=== PATIENT | female | born 1955 | race Caucasian/White ===

== ENCOUNTER 2018-08-12 23:16 | Inpatient (IN) ==
[2018-08-13 00:47] LABS: URINE SOURCE CLEAN CATCH
[2018-08-13 01:09] LABS: BASO# 0.04 X1000 (0.0-0.2); BASO% 0.5 % (0.0-0.8); EOS# 0.18 X1000 (0.0-0.7); EOS% 2.3 % (0.0-10.0); HEMATOCRIT 40.7 % (37.0-47.0); HEMOGLOBIN 13.4 g/dL (12.0-16.0); IMM GRAN# 0.03 X1000 (0.0-0.04); IMM GRAN% 0.4 % (0.0-0.5); LYMPH# 1.35 X1000 (1.2-3.4); LYMPH% 17.4 % (20.5-51.1); MCH 29.1 PG (27-31); MCHC 32.9 g/dL (33-37); MCV 88.5 FL (81-99); MONO% 10.3 % (1.7-9.3); MPV 10.7 FL (7.4-10.4); NEUT# 5.36 X1000 (1.4-6.5); NEUT% 69.1 % (42.2-75.2); PLT 284 X1000 (130-400); WBC 7.76 X1000 (4.8-10.8)
[2018-08-13 01:28] LABS: BILIRUBIN URINE NEGATIVE (NEGATIVE); BLOOD URINE TRACE (NEGATIVE); CLARITY SL. CLOUDY (CLEAR); COLOR YELLOW; KETONE URINE TRACE mg/dL (NEGATIVE); LEUKOCYTES URINE 1+ (NEGATIVE); NITRITE URINE POSITIVE (NEGATIVE); PH URINE 6.5; PROTEIN URINE 1+(30 mg/dL) mg/dL (NEGATIVE); SP GRAVITY URINE 1.015; UROBILINOGEN URINE NORMAL
[2018-08-13 01:29] LABS: URINE BACTERIA 4+ /HFP; URINE EPITHELIAL CELLS <10 /HPF (<10); URINE RBC <10 /HPF (<10)
[2018-08-13 01:30] LABS: URINE WBC <10 /HPF (<10)
--- NOTE | 2018-08-13 02:04 | PROVIDER DOCUMENTATION ---
Addendum entered and electronically signed by Mendel Ferrera MD 08/13/18 04:35 : Additional Progress - ADDITIONAL CONSULTS #4 Consult: Dr. Briseno Time Discussed: 04:35 Consult Disposition: Admit Addendum entered and electronically signed by Mendel Ferrera MD 08/13/18 04:35 : EKG Interpretation - EKG Time of EKG reading by physician:: 00:25 EKG Read and Signed by:: Mendel Ferrera Rate: 68 Rhythm: NSR [place]: normal QRS: LVH Comments: no STEMI Original Note: This chart was entered by Kiarra Camarena Scribe, acting as scribe for Mitchel Donaldson MD. HPI-General Adult <Mendel Ferrera - Last Filed: 08/13/18 04:35> - General Source: patient, family - History of Present Illness -Gen Adult Nature of Presenting Problems: 62 yof presents with to ed cc less than an hour ago right hand cramped and began having a spasm. pt says she couldn't feel her hands, lost balance and fell out in the floor. reports pt had 3xbypass november 14, 2017 and had some minor issues with falling out after surgery but has been ok lately. hx of DM, neuropathy bilateral hands and feet, and fibromyalgia Location of Pain/Injury: reports: hand(s) (right) Severity: reports: mild Onset/Duration: reports: other (less than an hour ago) <Mitchel Donaldson - Last Filed: 08/14/18 01:31> - General Chief Complaint: General Adult Stated Complaint: R arm numbness Time Seen by Provider: 08/12/18 23:52 Allergies/Adverse Reactions: Patient Allergies Allergy/AdvReac Type Severity Reaction Status Date / Time metformin AdvReac DIARRHEA Verified 12/06/17 09:08 Home Medications: Home Medication List Medication Instructions Recorded Confirmed Last Taken Type Metoprolol [Lopressor] 50 mg PO TID 02/22/14 08/13/18 08/12/18 History 50mg Pregabalin [Lyrica] 200 mg PO QHS 02/22/14 08/13/18 08/11/18 History 200mg Hydrocodone/APAP 10 mg/325 mg 1 each PO Q4H PRN PRN #30 tablet 03/31/16 Unknown Rx [[place]-10] Aspirin 325 mg PO DAILY 12/04/17 08/13/18 08/12/18 History 325mg Clonazepam [Klonopin] 1 mg PO TID 12/04/17 08/13/18 08/12/18 History 1mg Duloxetine [Cymbalta] 60 mg PO BID 12/04/17 08/13/18 08/12/18 History 60mg Glipizide [Glucotrol] 5 mg PO BID CC #60 tab 12/10/17 08/13/18 08/12/18 Rx 5mg Cyclobenzaprine [Flexeril] 10 mg PO QHS 08/13/18 08/13/18 08/12/18 History 10mg Fluoxetine [Prozac] 40 mg PO DAILY 08/13/18 08/13/18 08/12/18 History Hum Insulin NPH/Reg Insulin Hm 20 unit SQ BID 08/13/18 08/13/18 08/12/18 History [Novolin 70-30 100 Unit/ml Vial] Trazodone [Desyrel] 50 - 100 mg PO HS PRN PRN 08/13/18 08/13/18 08/11/18 History Triamterene/Hydrochlorothiazid 1 each PO DAILY 08/13/18 08/13/18 08/12/18 History [Triamterene-Hctz 37.5-25 mg Tb] 37.5/25 Review of Systems - Adult - REVIEW OF SYSTEMS - ADULT Constitutional: reports: see HPI. denies: chills, fever, fatique Eyes: reports: no symptoms reported Ears, Nose, Mouth & Throat: reports: no symptoms reported Cardiovascular: reports: no symptoms reported Respiratory: reports: no symptoms reported Gastrointestinal: reports: no symptoms reported Genitourinary: reports: no symptoms reported Musculoskeletal: reports: see HPI (neuropathy hands and feet) Integumentary: reports: no symptoms reported Neurological: reports: no symptoms reported Psychiatric: reports: no symptoms reported Endocrine: reports: no symptoms reported Hematologic/Lymphatic: reports: no symptoms reported Allergic/Immunologic: reports: no symptoms reported All Other Systems: Reviewed and Negative <Mitchel Donaldson - Last Filed: 08/14/18 01:31> Past History - Adult - PAST MEDICAL HISTORY-ADULT Review of Records: reports: Old Records Reviewed, Nursing Assessment Review, Medications Reviewed, Social history reviewed & non-contributory. Major Childhood Illnesses: reports: history unknown Cardiovascular: reports: HTN, other (tachycardia) Respiratory: reports: denies history Gastrointestinal: reports: denies history Obstetrical/Gynecological: reports: denies history, other (menopausal for 10 years, still has uterus and ovaries) Genitourinary: reports: denies history Musculoskeletal: reports: denies history, other (neuropathy) Neurological: reports: denies history Psychiatric: reports: denies history, depression Endocrine/Immune: reports: Diabetes Other Conditions: reports: denies history - PRIOR SURGERIES/PROCEDURES Surgical/Procedure History: reports: recent surgery (11/14/17), CABG (recent ), tonsillectomy, other (varicose veins) - PRIOR HOSPITALIZATIONS Prior Hospitalizations: reports: none - IMMUNIZATION STATUS Childhood Immunizations: See Nurse Assessment Flu Vaccine: See Nurse Assessment - FAMILY HISTORY Family History: reviewed, not pertinent - SOCIAL HISTORY Smoking: non-smoker <Mitchel Donaldson X. - Last Filed: 08/14/18 01:31> Physical Exam-General - PHYSICAL EXAM-ADULT Initial Vital Signs Reviewed: Yes - CONSTITUTIONAL General Appearance: appears well, alert, no apparent distress - EYES Eyes: PERRL/EOMI - HEAD, EARS, NOSE, MOUTH & THROAT HENMT: normocephalic/atraumatic, moist mucous membranes - NECK Neck: non-tender, full range of motion, supple, normal inspection - RESPIRATORY Respiratory: chest non-tender, lungs clear, normal breath sounds - CARDIOVASCULAR Cardiovascular: normal peripheral pulses, regular rate, rhythm, no edema - GASTROINTESTINAL (ABDOMEN) Abdominal Exam: normal bowel sounds, non tender, soft - LYMPHATIC Lymphatic: no adenopathy - MUSCULOSKELETAL Back Exam: normal inspection, no CVA tenderness, no vertebral tenderness Extremity: normal range of motion, non-tender, normal gait - SKIN Integumentary: normal color, normal turgor, warm/dry - NEUROLOGIC 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 - Last Filed: 08/14/18 01:31> Progress - PLAN OF CARE/RESULTS Progress/Plan/Lab Results: Vital Signs - 8 hr 08/12/18 23:16 Temperature 98 F Pulse Rate 71 Respiratory Rate 20 Blood Pressure 111/77 O2 Sat by Pulse Oximetry 99 Laboratory Results - last 24 hr 08/13/18 08/13/18 00:35 00:40 WBC 7.76 RBC 4.60 Hgb 13.4 Hct 40.7 MCV 88.5 MCH 29.1 MCHC 32.9 L RDW Std Deviation 13.0 Plt Count 284 MPV 10.7 H Immature Gran % (Auto) 0.4 Neut % (Auto) 69.1 Lymph % (Auto) 17.4 L Mcculloch % (Auto) 10.3 H Eos % (Auto) 2.3 Baso % (Auto) 0.5 Immature Gran # (Auto) 0.03 Neut # (Auto) 5.36 Lymph # (Auto) 1.35 [place] # (Auto) 0.80 H Eos # (Auto) 0.18 Baso # (Auto) 0.04 Urine Source CLEAN CATCH Urine Color YELLOW Urine Clarity SL. CLOUDY A Urine pH 6.5 Ur Specific [place] 1.015 Urine Protein 1+(30 mg/dL) A Urine Ketones TRACE Urine Blood TRACE Urine Nitrite POSITIVE A Urine Bilirubin NEGATIVE Urine Urobilinogen NORMAL Urine Microscopic RBC <10 Urine WBC 1+ A Urine Microscopic WBC <10 Ur Epithelial Cells <10 Urine Bacteria 4+ Urine Glucose 3+(500 mg/dL) A Orders Category Date Time Status CHEST-1 VIEW [RAD] Stat Exams 08/13/18 00:10 Taken CBC WITH ELECTRONIC DIFF [HEME] Stat Lab 08/13/18 00:40 Completed CK PROFILE [SP CHEM] Stat Lab 08/13/18 00:40 Received COMPREHENSIVE METABOLIC PANEL [CHEM] Stat Lab 08/13/18 00:40 Received MAGNESIUM [CHEM] Stat Lab 08/13/18 00:40 Received PRO B-NATRIURETIC PEPTIDE Stat Lab 08/13/18 00:[address] [URINALYSIS] Stat Lab 08/13/18 00:35 Completed URINE MICROSCOPIC [URINALYSIS] Stat Lab 08/13/18 00:35 Completed CefTRIAXONE [Rocephin] Med 08/13/18 02:36 Once 1 gm IM NOW ONE Lidocaine 1% Pf [Xylocaine-Mpf 1%] Med 08/13/18 02:36 Once 5 ml INJ NOW ONE EKG [EKG] Stat Ther 08/13/18 00:07 Ordered Heart score=5 (moderate risk) Result Diagrams: 08/13/18 00:40 08/13/18 00:40 - CONSULTS/PCP/HOSPITALIST Notification #1 *Consult/PCP/Hospitalist*: Dr. Emmanuel, mems device scientist Time Discussed: 04:05 Reason/Comments: recommend admit for observation <Mendel Ferrera - Last Filed: 08/13/18 04:35> - PLAN OF CARE/RESULTS Progress/Plan/Lab Results: Vital Signs - 8 hr 08/12/18 23:16 Temperature 98 F Pulse Rate 71 Respiratory Rate 20 Blood Pressure 111/77 O2 Sat by Pulse Oximetry 99 Orders Category Date Time Status CHEST-1 VIEW [RAD] Stat Exams 08/13/18 00:10 Ordered CBC WITH ELECTRONIC DIFF [HEME] Stat Lab 08/13/18 00:09 Uncollected CK PROFILE [SP CHEM] Stat Lab 08/13/18 00:09 Uncollected COMPREHENSIVE METABOLIC PANEL [CHEM] Stat Lab 08/13/18 00:09 Uncollected MAGNESIUM [CHEM] Stat Lab 08/13/18 00:09 Uncollected PRO B-NATRIURETIC PEPTIDE Stat Lab 08/13/18 00:[address] [URINALYSIS] Stat Lab 08/13/18 00:10 Uncollected EKG [EKG] Stat Ther 08/13/18 00:07 Ordered Result Diagrams: 08/13/18 00:40 08/13/18 00:40 - REASSESSMENT Reassessment #1 Time Reassessed: 01:48 Status: improving (no numbness; no lateralizing motor deficit;) - XRAY 1 XRAY Study: Chest Impression: Normal (no acute pathological findings (pending official radiologist report)) - CHANGE OF SHIFT REPORT (ED Provider) Report Given and Care Transferred to:: Dr. Ferrera Time of Transfer: 02:04 Items Pending: Labs <Mitchel Donaldson - Last Filed: 08/14/18 01:31> Departure - Departure Date of Disposition Decision: 08/13/18 Time of Disposition Decision: 03:07 Certified Medical Emergency: Emergent - Critical Care Note This patient required my direct & personal management of CC.: No <Mendel Ferrera - Last Filed: 08/13/18 04:35> - Departure Certified Medical Emergency: Emergent - Critical Care Note This patient required my direct & personal management of CC.: No <Mitchel Donaldson - Last Filed: 08/14/18 01:31> - Departure DIAGNOSIS: Anxiety in acute stress reaction, Elevated brain natriuretic peptide (BNP) level, Elevated troponin UTI (urinary tract infection) Qualifiers: Urinary tract infection type: site unspecified Hematuria presence: without hematuria Qualified Code(s): N39.0 - Urinary tract infection, site not specified Disposition: ADMITTED INPATIENT 09 Condition: Stable Attestation - Physician/ JAZMÍN Attestation Patient care was provided by Advanced Practice Provider:: No The physician spent face to face time with patient:: Yes Advanced Practice Provider documentation review:: Supervising physician onsite and consulted in the evaluation and care of this patient. The physician did have a face to face encounter with the patient. <Mitchel Donaldson. - Last Filed: 08/14/18 01:31> This chart was documented by the indicated scribe, (Kiarra Camarena Scribe) and accurately reflects the services I performed and decisions made by Anika apodaca Kofi X., MD, as attested by the provider's signature.
[2018-08-13] MEDS ORDERED: ROCEPHIN IM ONE (02:36)
[2018-08-13] MEDS ORDERED: XYLOCAINE-MPF 1% INJ ONE (02:36)
[2018-08-13 02:58] LABS: ALBUMIN 3.9 g/dL (3.5-5.0); CALCIUM 9.8 mg/dL (8.8-10.2); CREATININE 1.1 mg/dL (0.5-0.9); POTASSIUM 4.9 mmol/L (3.5-5.1); TOTAL BILIRUBIN 0.2 mg/dL (0.20-1.00); TOTAL PROTEIN 7.2 g/dL (6.3-8.3)
[2018-08-13] MEDS ORDERED: LOVENOX SUBQ ONE (04:03)
[2018-08-13] MEDS ORDERED: LOVENOX ONE (04:14)
--- NOTE | 2018-08-13 06:58 | EKG Report ---
Test Performed on : 08/13/2018 00:24:40 AM Test Reason : near syncope Blood Pressure : / mmHG Vent. Rate : 068 BPM Atrial Rate : 068 BPM P-R Int : 184 ms QRS Dur : 104 ms QT Int : 380 ms P-R-T Axes : 029 009 043 degrees QTc Int : 404 ms Normal sinus rhythm. Possible Left atrial enlargement Left ventricular hypertrophy Abnormal ECG When compared with ECG of 04-DEC-2017 18:49, (Unconfirmed) T wave inversion no longer evident in Inferior leads T wave inversion no longer evident in Lateral leads Unconfirmed Result
--- NOTE | 2018-08-13 06:59 | Diag Imaging Result Doc PS360 ---
EXAM: CHEST-1 VIEW 08/13/2018 HISTORY: near syncope TECHNIQUE: AP portable at 0042 COMMENT: There is minimal atelectasis in the left costophrenic angle. The heart size and pulmonary vascularity are within normal limits. Otherwise the lungs are clear. IMPRESSION: Minimal left lower lobe atelectasis. Electronically signed by Sebas Rick 08/13/2018 6:56 AM
[2018-08-13] MEDS ORDERED: ASPIRIN EC PO ONE (11:37)
[2018-08-13] MEDS ORDERED: DESYREL PO PRN (12:46)
[2018-08-13] MEDS ORDERED: NORCO-10 PO PRN (12:46)
--- NOTE | 2018-08-13 13:16 | EKG Report ---
Test Performed on : 08/13/2018 11:20:51 AM Test Reason : Elevated troponins Blood Pressure : / mmHG Vent. Rate : 077 BPM Atrial Rate : 077 BPM P-R Int : 196 ms QRS Dur : 104 ms QT Int : 374 ms P-R-T Axes : 033 027 084 degrees QTc Int : 423 ms Normal sinus rhythm. Possible Left atrial enlargement Nonspecific T wave abnormality Abnormal ECG When compared with ECG of 13-AUG-2018 00:24, (Unconfirmed) No significant change was found Confirmed by Hussain Richardson MD ([id number]) on 08/14/2018 9:45:33 AM
[2018-08-13] MEDS: ASPIRIN EC PO SCH (13:37)
[2018-08-13] MEDS: LOPRESSOR PO SCH ×2 (13:37→16:58)
[2018-08-13] MEDS: KLONOPIN PO SCH ×2 (13:38→16:58)
[2018-08-13] MEDS: LOVENOX SUBQ SCH (16:57)
[2018-08-13] MEDS: HUMULIN R (PARKWAY) SUBQ SCH ×2 (16:57→20:52)
[2018-08-13] MEDS: GLUCOTROL PO SCH (16:58)
--- NOTE | 2018-08-13 17:59 | Diag Imaging Result Doc PS360 ---
EXAM: CT HEAD W/O CONTRAST 08/13/2018 HISTORY: encephalopathy TECHNIQUE: This exam was performed using automated exposure control, adjustment of mA or kV according to patient size, and/or use of iterative reconstruction technique. COMMENT: There are calcifications present in the left vertebral and both internal carotid arteries. There is no evidence of mass effect, bleed, or abnormal extra-axial fluid collection. Compared to the previous examination of 12/04/2017 there has been no appreciable change. The visualized paranasal sinuses are clear. The calvarium is intact. IMPRESSION: No evidence of acute intracranial disease. Electronically signed by Sebas Rick 08/13/2018 5:57 PM
--- NOTE | 2018-08-13 18:22 | Diag Imaging Result Doc PS360 ---
EXAM: CT THORAX W/CONTRAST 08/13/2018 HISTORY: syncope, elevated troponin TECHNIQUE: This exam was performed using automated exposure control, adjustment of mA or kV according to patient size, and/or use of iterative reconstruction technique. COMMENT: There has been previous sternotomy. There is minimal atelectasis or fibrosis in the lung bases. There are no previous thoracic studies available for comparison however the atelectatic changes in the bases are actually somewhat improved since the previous abdominal study of 03/26/2016. There are no abnormal fluid collections. There are extensive coronary calcifications. There is apparent muscular hypertrophy of the left ventricle. There is no evidence of significant adenopathy. The aorta is normal in caliber without evidence of dissection. No acute bony abnormalities are present. IMPRESSION: Minimal atelectasis. Other chronic changes as described. Electronically signed by Sebas Rick 08/13/2018 6:18 PM
--- NOTE | 2018-08-13 19:11 | CONSULTATION ---
DATE OF CONSULTATION: 08/13/2018 IMPRESSION: 1. Transient weakness, right upper extremity. Consider possible transient ischemic attack. 2. Very mild elevation in troponin. Etiology not clear as patient has not had any chest discomfort. 3. Atherosclerotic coronary disease with previous coronary bypass grafting October 2017. 4. Diabetes mellitus, longstanding. 5. Mild hypertension. 6. Diabetic neuropathy. PAST SURGICAL HISTORY: Also includes tonsillectomy. RECOMMENDATIONS: 1. Obtain noncontrasted head CT. If negative, initiate Lovenox. 2. Echocardiography with bubble study. 3. Ultimately would pursue MRI of the brain and transesophageal echocardiography to evaluate for possible cardiac source of embolus. HISTORY: This 62-year-old white female with past history of previous coronary bypass surgery October 2017, mild hypertension, longstanding diabetes mellitus and diabetic neuropathy was admitted to emergency room early this morning with slightly elevated troponin. She relates that yesterday evening she developed a uncontrollable shaking in her right hand. She tried to control this with the left hand. As the shaking improved she started to notice that her right upper extremity was weak. She tried to walk but had difficulty standing presumably due to weakness. She relates that she tended to fall forward. Symptoms lasted approximately 10 to 15 minutes and then resolved. She became apprehensive regarding her symptoms possibly representing a stroke or something. She came to the emergency room. Evaluation was benign with exception that her troponin was very mildly elevated at 0.5. She had no chest pain whatsoever. She does describe some fairly typical angina symptoms prior to her coronary bypass surgery last October. She has not had recurrence of angina symptoms since then. PAST MEDICAL HISTORY: 1. Atherosclerotic coronary disease with coronary bypass surgery. October 2017. 2. Borderline hypertension. 3. Longstanding diabetes mellitus with associated peripheral neuropathy. 4. 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 PAST SURGICAL HISTORY: Also includes tonsillectomy and adenoidectomy. ALLERGIES: She is allergic or intolerant to metformin. MEDICATIONS PRIOR TO ADMISSION: As listed. It is noteworthy that she has been on aspirin prior to admission. SOCIAL HISTORY: She is . She does not smoke or use alcohol. FAMILY HISTORY: Positive for coronary disease. REVIEW OF SYSTEMS: Pulmonary: Negative. Gastrointestinal: Negative. Constitutional: Negative. Remainder review of systems negative/noncontributory with 14 total systems reviewed. PHYSICAL EXAMINATION: General: This is a pleasant, overweight, older middle-aged white female in no distress. Vital signs: Blood pressure 167/91, heart rate 75, oxygen saturation 98%. HEENT: Extraocular movements intact. Mucous membranes are moist. Neck: Supple. No jugular venous distention. No carotid bruits. Chest: Clear to auscultation bilaterally. Cardiac Exam: Reveals a regular rate and rhythm without appreciable murmur or gallop. Abdomen: Soft, nontender. Bowel sounds are normal. Extremities: Without edema. Neurologic: Reveals her to be alert and fully oriented. Speech is fluent. She moves all 4 extremities equally well. Skin: Warm and dry. Psych: Reveals her mood to be appropriate. DATA: A 12-lead electrocardiogram demonstrates normal sinus rhythm, possible left atrial abnormality and nonspecific T-wave abnormality. LABORATORY DATA: Reviewed and demonstrates white blood cell count 7.76, hematocrit 40.7, hemoglobin 13.4, platelet count 284,000. D-dimer 0.37. Sodium 136, potassium 4.9, chloride 104, carbon dioxide 23, BUN 29, creatinine 1.1, glucose 329, CPK 39, troponin T 0.501. Pro B- natriuretic peptide level 1121. cc: Beau Emmanuel MD
[2018-08-13] MEDS: FLEXERIL PO SCH (20:53)
[2018-08-13] MEDS: HUMULIN 70/30 (PARKWAY) SUBQ SCH (20:53)
[2018-08-13] MEDS: LYRICA PO SCH (20:53)
[2018-08-13] MEDS: CYMBALTA PO SCH (20:53)
--- NOTE | 2018-08-13 21:54 | HISTORY AND PHYSICAL ---
CHIEF COMPLAINT: Tremor and acute right-sided weakness HISTORY OF PRESENT ILLNESS: This is a 62-year-old female with diabetes and CAD. She had an episode which they did not really describe this to me. The ER essentially admitted her because her troponin was elevated, but she had kind of cramping in her right hand, kind of a spasming, then she lost function of her right upper extremity. She also had paresthesias , lost balance and fell. She did not pass out, though. She has had some intermittent episodes since her surgery, but no smita syncope. She does have a history of neuropathy related to her diabetes. She is status post CABG. That was in November 2017. Workup in the ER was relatively unremarkable although curiously absent head CT was not completed, but she did have an elevated troponin. The symptomatology was felt to be possibly an anxiety attack, which is certainly possible, but may not be the predominant etiology. No changes in her medications. She does have some intermittent she reports symptoms associated with sometimes with low blood sugar, but the lowest blood sugar she claims is 106, which is not that low. Anyway, she was placed in observation for her chest pain. In any case, patient meets inpatient criteria. She denies any chest pain, palpitations, or otherwise. The patient is otherwise stable. PAST MEDICAL HISTORY: 1. She has had CAD status post CABG. 2. Diabetes, insulin dependent. 3. Anxiety and depression. 4. Hypertension. 5. Chronic pain disorder. PAST SURGICAL HISTORY: She has had CABG. She has had an inguinal abscess that was resected. Varicose vein surgery and tonsillectomy. FAMILY HISTORY: Both parents of CAD. Her mother at 40. Father at 83. SOCIAL HISTORY: No tobacco, alcohol. She has had several jobs. She is retired. Her most recent was [employer]. She is . MEDICATIONS: She currently takes Flexeril 10, Lyrica 200 at bedtime, aspirin 325 daily, Klonopin 1 t.i.d., Cymbalta 60 b.i.d., Prozac 40 daily, NPH 20 b.i.d., Lopressor 50 t.i.d., trazodone 50 to 100 p.r.n., triamterene hydrochlorothiazide 37.5/25, glipizide 5 b.i.d., [place] 10. REVIEW OF SYSTEMS: Constitutional: No weight loss or appetite change. No chest pains. No shortness of breath Cardiovascular: Regular rate and rhythm. Pulmonary: Bilateral breath sounds. Clear to auscultation. Eyes: Pupils equal, round, reactive to light. Extraocular movements were intact. She has no scleral icterus. Ears, nose and throat: Exam was moist with moist mucosa. No lesions noted. Cardiovascular: Regular rate and rhythm. No murmurs, gallops, or rubs. Pulmonary: Bilateral breath sounds. She definitely had some rales at the right base lower to mid lung. GI: Soft, nontender, nondistended. Bowel sounds are positive Neuro: Nonfocal. She had no pronator drift. She had no facial asymmetry. Strength was 5/5 in all 4 extremities. Skin: Clean, dry, intact. Nothing was noted. LABORATORY DATA AND STUDIES: White count 7.7, H and H 13 and 40, platelets 284, 000. Creatinine 1.1. Troponin initially was 0.15. Curiously, she had elevated troponins in November , 1.3. She has had some elevated troponins before. I think she was sent to [facility]. That is when she had her CABG. In any case, really unclear what caused her issues. Her sugar is 329, creatinine 1.1. Urine, possible urinary tract infection. She had positive nitrites. White count was normal. EKG showed nonspecific. Chest x-ray had no infiltrates but she had some right rales on exam. PROBLEM LIST: Assessment this is a 62-year-old female with history of coronary artery disease status post coronary artery bypass grafting presenting with acute neurological incident, most consistent with a transient ischemic attack. There is no evidence of stroke or permanent injury, and history of coronary artery disease status post coronary artery bypass grafting with an elevated troponin without clear explanation. 1. Neuro. It sounds most consistent with a transient ischemic attack. We will continue aspirin. Consider the addition of Plavix. We will get a carotid echocardiogram and follow closely. Dr. Emmanuel who has since evaluated the patient is concerned about a paradoxical embolism, which is certainly a concern. 2. Elevated troponin. Really unknown etiology. Certainly could be a silent non -STEMI. Her creatine kinase though is not elevated. She does not have profound renal insufficiency so I do not know what that is caused from. Will evaluate for PE, DVT, stroke. We will continue anticoagulation. Dr. Emmanuel again is concerned over paroxysmal embolism and will consider a ANALI on Wednesday to evaluate for PFO. I am going to go ahead and CT her thorax. I have ordered a D-dimer which was normal, but I think we need to rule out any major issue there. 3. Coronary artery disease status post coronary artery bypass grafting. We will continue regular medications and follow. 4. Diabetes. Continue glipizide and insulin and follow her blood sugars. We will also check an A1c. 5. We are waiting on final disposition to decide about long-term issues with her. Appreciate Dr. Benites's input. We will continue workup as information returns. cc: Steve Briseno MD MTDCrispin
[2018-08-14] MEDS: LOVENOX SUBQ SCH ×2 (03:42→16:58)
[2018-08-14] MEDS: HUMULIN R (PARKWAY) SUBQ SCH ×4 (06:22→21:07)
[2018-08-14 07:21] LABS: CALCIUM 9.8 mg/dL (8.8-10.2); POTASSIUM 3.9 mmol/L (3.5-5.1)
[2018-08-14 07:27] LABS: BASO# 0.03 X1000 (0.0-0.2); BASO% 0.4 % (0.0-0.8); EOS# 0.22 X1000 (0.0-0.7); EOS% 2.9 % (0.0-10.0); HEMATOCRIT 37.7 % (37.0-47.0); HEMOGLOBIN 12.6 g/dL (12.0-16.0); IMM GRAN# 0.02 X1000 (0.0-0.04); IMM GRAN% 0.3 % (0.0-0.5); LYMPH# 3.05 X1000 (1.2-3.4); LYMPH% 39.7 % (20.5-51.1); MCH 29.2 PG (27-31); MCHC 33.4 g/dL (33-37); MCV 87.5 FL (81-99); MONO% 10.4 % (1.7-9.3); MPV 10.9 FL (7.4-10.4); NEUT# 3.57 X1000 (1.4-6.5); NEUT% 46.3 % (42.2-75.2); PLT 254 X1000 (130-400); RBC 4.31 XMIL (4.2-5.4); RDW 12.6 % (11.5-14.5); WBC 7.69 X1000 (4.8-10.8)
[2018-08-14 07:44] LABS: HEMOGLOBIN A1C 9.1 % (4.8-6.0)
[2018-08-14] MEDS: CYMBALTA PO SCH ×2 (08:24→21:06)
[2018-08-14] MEDS: PROZAC PO SCH (08:25)
[2018-08-14] MEDS: LOPRESSOR PO SCH ×3 (08:25→16:58)
[2018-08-14] MEDS: ASPIRIN EC PO SCH (08:25)
[2018-08-14] MEDS: DYAZIDE PO SCH (08:25)
[2018-08-14] MEDS: KLONOPIN PO SCH ×3 (08:25→16:58)
[2018-08-14] MEDS: GLUCOTROL PO SCH ×2 (08:25→16:58)
[2018-08-14] MEDS: HUMULIN 70/30 (PARKWAY) SUBQ SCH ×2 (08:26→21:06)
[2018-08-14] MEDS ORDERED: ASPIRIN PO SCH (09:00)
--- NOTE | 2018-08-14 19:13 | PROGRESS NOTE ---
DATE: 08/14/2018 OBJECTIVE: Blood pressure is 127/70, heart rate 67, respiratory rate 18, temperature 97.4 degrees, 99% on room air.Cardiovascular: Regular rate and rhythm. Pulmonary: Bilateral breath sounds. Clear to auscultation. GI: Soft, nontender, nondistended. Bowel sounds are positive. LABORATORY DATA: White count 7, hemoglobin and hematocrit 12 and 37, platelets [id number]. BUN and creatinine 28 and 0.1. Troponins are still elevated. PROBLEM LIST: 1. TIA versus possible CVA. She is on aspirin, Plavix. We will continue to follow. He is already on high dose aspirin. If we add Plavix, I think we will need to decrease her aspirin. 2. Elevated troponin. Go back to Neuro. We will plan for MRI tomorrow to evaluate for stroke. If she has not had a stroke, I do not think we necessarily need to pursue a ANALI but I will defer to Cardiology. I do not think they had made a decision about that today. I will discuss with Dr. Benites or we will need to contact the Cardiology Service tomorrow if decision has been made. 3. Elevated troponin. She is a CAD patient status post CABG. We have done an echocardiogram, but I think it is still pending. Cardiology feels this is not necessarily a non-STEMI. She does not have symptoms, but she is a diabetic so at this point I am not sure if we are planning to do any noninvasive testing. I am waiting for Cardiology guidance as far as that is concerned. I think the first thing was to try to pursue ANALI and MRI. The bump in troponins is minor and it is decreasing, but it is not slightly positive. It is definitively positive without a clear etiology and we are anticoagulating her. 4. Type 2 diabetes. We will continue to follow blood sugars closely. 5. Disposition: Pending her course and further management. cc: Steve Briseno MD
[2018-08-14] MEDS: LYRICA PO SCH (21:06)
[2018-08-14] MEDS: FLEXERIL PO SCH (21:06)
[2018-08-15] MEDS: LOVENOX SUBQ SCH ×2 (04:34→17:52)
[2018-08-15] MEDS: HUMULIN R (PARKWAY) SUBQ SCH ×3 (06:11→17:23)
[2018-08-15 07:20] LABS: BASO# 0.03 X1000 (0.0-0.2); BASO% 0.4 % (0.0-0.8); EOS% 2.7 % (0.0-10.0); HEMATOCRIT 36.8 % (37.0-47.0); HEMOGLOBIN 12.2 g/dL (12.0-16.0); IMM GRAN# 0.03 X1000 (0.0-0.04); IMM GRAN% 0.4 % (0.0-0.5); LYMPH# 2.59 X1000 (1.2-3.4); LYMPH% 34.6 % (20.5-51.1); MCH 29.2 PG (27-31); MCHC 33.2 g/dL (33-37); MONO# 0.72 X1000 (0.11-0.59); MONO% 9.6 % (1.7-9.3); MPV 10.2 FL (7.4-10.4); NEUT# 3.92 X1000 (1.4-6.5); NEUT% 52.3 % (42.2-75.2); PLT 239 X1000 (130-400); RBC 4.18 XMIL (4.2-5.4); RDW 12.5 % (11.5-14.5); WBC 7.49 X1000 (4.8-10.8)
[2018-08-15 08:05] LABS: CALCIUM 9.9 mg/dL (8.8-10.2); CREATININE 1.2 mg/dL (0.5-0.9); POTASSIUM 4.5 mmol/L (3.5-5.1)
[2018-08-15] MEDS: CYMBALTA PO SCH ×2 (08:19→21:53)
[2018-08-15] MEDS: KLONOPIN PO SCH ×3 (08:19→17:53)
[2018-08-15] MEDS: DYAZIDE PO SCH (08:20)
[2018-08-15] MEDS: ASPIRIN EC PO SCH (08:20)
[2018-08-15] MEDS: GLUCOTROL PO SCH ×2 (08:20→17:53)
[2018-08-15] MEDS: PROZAC PO SCH (08:20)
[2018-08-15] MEDS: LOPRESSOR PO SCH ×3 (08:20→17:53)
[2018-08-15] MEDS: HUMULIN 70/30 (PARKWAY) SUBQ SCH (08:20)
--- NOTE | 2018-08-15 08:41 | ECHO REPORT ---
ORDER DATE: 08/13/2018 MEASUREMENTS: Left ventricle end-diastolic 4.2, end-systolic diameter 3.0, septal thickness 1.1, aortic root 3.6, left atrium 4.7. SUMMARY: 1. Technically difficult study due to limited acoustic window quality. Intravenous echocontrast agent Definity was utilized to enhance endocardial definition. 2. Aortic valve is trileaflet and opens normally on 2-dimensional images. Peak gradient across the aortic valve is less than 10 mmHg. There is trace aortic regurgitation. Mitral, tricuspid, and pulmonic valves are without evidence of structural abnormality. There is trace mitral regurgitation. The aortic root is normal in size. 3. Normal left ventricular chamber size with borderline concentric left ventricular hypertrophy suggested. Estimated left ventricular ejection fraction is approximately 55 to 60 percent. There is severe hypokinesis of the basal inferior wall. No other wall motion abnormalities can be appreciated. Doppler suggests grade 1 left ventricular diastolic function. The left atrium is mildly to moderately enlarged. The right atrium and right ventricle are normal in size with grossly preserved right ventricular systolic function. 4. No pericardial effusion. 5. Appearance of inferior vena cava suggests normal central venous pressure. cc: MD Steve Crawford MD
--- NOTE | 2018-08-15 12:21 | Diag Imaging Result Doc PS360 ---
MRI BRAIN W/WO CONTRAST - 08/15/2018 INDICATION: r/o cva COMPARISON: Head CT 08/13/2018 FINDINGS: There are several clustered tiny areas of restricted diffusion based at the cortex of the left parietal lobe. There is also some hyperintense signal on the T2 and FLAIR in the cortex in these areas. There is no abnormal contrast enhancement. There is no intracranial mass or hemorrhage. 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 No complication. Electronically signed by Ole Ramirez 08/15/2018 12:19 PM
--- NOTE | 2018-08-15 15:49 | ECHO REPORT ---
ORDER DATE: 08/15/2018 INDICATIONS: Evaluation of possible patent foramen ovale. DESCRIPTION: This is a limited echocardiogram. The patient was imaged in the apical four chamber view. Agitated saline was injected twice. With the first injection, crossing of bubbles was not that obvious. However, with the second injection of agitated saline there is definite crossing of a puff of bubbles from right to left that is well visualized. The right-sided chambers are small. SUMMARY: This echocardiographic study, which is a limited one, indicates the presence of a patent foramen ovale with crossing of bubbles from right to left. This is apparently an intermittent phenomenon. Clinical correlation is recommended. cc: MD Myriam Linares CRNP
--- NOTE | 2018-08-15 16:03 | Extremity Venous Study ---
EXAM: Carotid Ultrasound HISTORY: recent CVA left hemisphere TECHNIQUE: Carotid Doppler ultrasound COMPARISON: None. FINDINGS: Left: There is normal flow in the common carotid artery. A small amount of plaque is present in the bulb. Peak systolic velocity in the internal carotid artery is 87 cm/s. The ICA/CCA ratio is 1.12. There is antegrade flow in the vertebral artery. Right: There is normal flow in the common carotid artery. No occlusion. A tiny amount of plaque is present in the bulb. Peak systolic velocity in the internal carotid artery is 65 cm/s. The ICA/CCA ratio is 1.16. There is antegrade flow in the vertebral artery. IMPRESSION: Mild stenosis in each proximal internal carotid artery of less than 40%. Electronically signed by Dillon Girard 08/15/2018 4:00 PM
--- NOTE | 2018-08-15 18:48 | Diag Imaging Result Document ---
PROCEDURE NAME: MYOCARDIAL PERFU SCAN, REST - 08/15/2018 STUDY: Resting gated myocardial perfusion study. INDICATION: Myocardial infarction. DESCRIPTION: The patient was injected with technetium-99 sestamibi 25.5 mCi. Multiple tomographic views of the cardiac structures were obtained at rest. SUMMARY OF FINDINGS: Resting gated myocardial perfusion study shows essentially normal myocardial perfusion. There is no convincing evidence of any defect noted at rest. Gated SPECT shows ejection fraction of 60%. Ventricular volumes appear to be normal. The lung/heart ratio is normal at 0.39. The polar plots suggest the possibility of a focal defect in the inferoseptal segment of the left ventricle. In summary, this study raises concern for a possible focal inferoseptal defect. The remaining portion of the myocardium appears to be well perfused. Ejection fraction is normal. Clinical correlation is recommended. cc: MD Myriam Linares CRNP
[2018-08-15] MEDS ORDERED: NORCO-10 PO PRN (20:31)
[2018-08-15] MEDS ORDERED: DESYREL PO PRN (20:32)
[2018-08-15] MEDS: FLEXERIL PO SCH (21:53)
[2018-08-15] MEDS: LYRICA PO SCH (21:53)
[2018-08-15] MEDS: HUMULIN 70/30 SUBQ SCH (21:54)
[2018-08-15] MEDS: HUMULIN R SUBQ SCH (21:55)
[2018-08-15] MEDS ORDERED: INSULIN PEN NEEDLES ONE (21:55)
--- NOTE | 2018-08-15 23:00 | PROGRESS NOTE ---
DATE: 08/15/2018 SUBJECTIVE: Patient has no new complaints notes that she is feeling better, her neurologic symptoms appear back to baseline. PHYSICAL: Temperature 97.6, pulse 68, respiratory 20, BP 147/67.General: She is awake, alert, she is in no distress. HEENT: Normocephalic. Neck: Supple. CV: Regular rate. Chest: Clear. Abdomen: Soft. Extremities: Moves all extremities. ASSESSMENT: 1. Transient ischemic attack appears to have resolved, will continue aspirin, Plavix. 2. Elevated troponin, troponin is elevated at 0.44, it is actually mildly lower than it has been in the past few days, will defer this to Cardiology. They are planning a ANALI . 3. Type 2 diabetes. cc: Ronnie Mortensen MD
[2018-08-16] MEDS: HUMULIN R SUBQ SCH ×4 (06:09→21:35)
[2018-08-16] MEDS: LOVENOX SUBQ SCH ×2 (06:15→18:28)
[2018-08-16 07:57] LABS: HEMATOCRIT 39.2 % (37.0-47.0); HEMOGLOBIN 12.9 g/dL (12.0-16.0); MCH 29.7 PG (27-31); MCHC 32.9 g/dL (33-37); MCV 90.1 FL (81-99); MPV 10.6 FL (7.4-10.4); RBC 4.35 XMIL (4.2-5.4); RDW 13.1 % (11.5-14.5); WBC 6.86 X1000 (4.8-10.8)
[2018-08-16 08:04] LABS: INR 0.94; PROTIME 13.3 Seconds (11.0-16.0)
[2018-08-16 08:25] LABS: ALB/GLOB RATIO 1.1; ALBUMIN 3.5 g/dL (3.5-5.0); CALCIUM 10.1 mg/dL (8.8-10.2); TOTAL BILIRUBIN 0.21 mg/dL (0.20-1.00); TOTAL PROTEIN 6.7 g/dL (6.3-8.3)
[2018-08-16 09:32] LABS: POTASSIUM 5.4 mmol/L (3.5-5.1)
[2018-08-16] MEDS ORDERED: XYLOCAINE 2% VISCOUS ONE (10:18)
[2018-08-16] MEDS ORDERED: SODIUM CHLORIDE 0.9% 10 ML ONE (10:18)
[2018-08-16] MEDS ORDERED: DIPRIVAN 1% ONE (10:34)
[2018-08-16] MEDS ORDERED: CLAVE TWINSITE 32 IN 11959 ONE (10:36)
[2018-08-16] MEDS ORDERED: NS 1,000 ML ONE ×2 (10:36→10:37)
[2018-08-16] MEDS: HUMULIN 70/30 SUBQ SCH ×2 (13:13→21:44)
[2018-08-16] MEDS: LOPRESSOR PO SCH ×3 (13:13→17:53)
[2018-08-16] MEDS: KLONOPIN PO SCH ×3 (13:13→17:53)
[2018-08-16] MEDS: GLUCOTROL PO SCH ×2 (13:13→17:53)
[2018-08-16] MEDS: CYMBALTA PO SCH ×2 (13:14→21:37)
[2018-08-16] MEDS: PROZAC PO SCH (13:43)
[2018-08-16] MEDS: ASPIRIN EC PO SCH (13:44)
[2018-08-16] MEDS: ROCEPHIN 1 GM in NS 50 ML IV SCH (13:45)
[2018-08-16] MEDS: DYAZIDE PO SCH (14:27)
--- NOTE | 2018-08-16 14:53 | Transesophageal Echocardiogram ---
DATE: 08/16/2018 TRANSESOPHAGEAL ECHOCARDIOGRAM: INDICATION FOR STUDY: Stroke. Evaluate for paradoxical source. PROCEDURE IN DETAIL: Ms. Tadeo was brought to the catheterization laboratory in fasting state. Informed consent was obtained. She was prepped in usual fashion. She was anesthetized per Anesthesia. After appropriate sedation, a ANALI probe was passed without difficulty. Images were obtained in multiple planes. At conclusion of procedure, the ANALI probe was removed. No apparent complications. FINDINGS: 1. The right atrium appears normal in size. There is no evidence of shunting on color Doppler evaluation, but with injection of agitated saline contrast there was a small amount of bubbles seen traversing the interatrial septum suggesting a very small PFO. 2. Trace tricuspid regurgitation was identified on difficult views of the tricuspid valve. 3. The right ventricle was difficult to view, but appeared to have normal size and systolic function. 4. No significant pulmonic insufficiency on difficult views of the pulmonic valve. 5. The left atrium appeared mildly enlarged. There is no evidence of clot seen in the left atrium or the left atrial appendage. The pulse wave velocity in the left atrial appendage was greater than 50 cm/sec. 6. No mitral prolapse. Mild mitral regurgitation. 7. The left ventricle appears to be normal in size with no clear evidence of left ventricular hypertrophy. The LV systolic function was difficult to assess on off-axis views. There did appear to be a normal ejection fraction of greater than 50%. 8. The aortic valve opens well. It is trileaflet. There is mild insufficiency with no evidence of stenosis. 9. The aorta appeared to be normal in size. There was mild to moderate atherosclerosis seen in the descending thoracic aorta. 10. No pericardial effusion seen. cc: MD Majo Carter PA MTDD
--- NOTE | 2018-08-16 17:43 | CONSULTATION ---
DATE OF CONSULTATION: 08/16/2018 NEUROLOGY CONSULTATION: ROOM: Room 323-A. HISTORY OF PRESENT ILLNESS: Ms. Tadeo is 62 years old. There is question of neurologic event. History from the patient is that she had sudden onset of involuntary right hand shaking, followed quickly by right arm tonically flexed at the elbow with fist toward her chest, gait difficulty with a fall and then complete recovery in approximately 10 minutes. She did not specifically notice right leg weakness causing her to fall. She is certain there was no speech difficulty or trouble with language. There was no vision disturbance. She did not have headache. She did not have injury when she fell. There was no incontinence. She reports no history of identical episode, but there is history of some episodes of falling, possibly postural lightheadedness and syncope, possibly associated with shaking raising question of seizure 8-10 months ago. I have reviewed the records from November 2017 on this computer system. is at the bedside now and reports he saw these prior episodes. There was never clearly focal right arm involvement or other focal problem with those prior spells. At least one of the prior episodes was associated with extreme elevated blood sugar greater than 700. Recent episode was not associated with extreme elevated blood sugar. She has clonazepam, reports taking 1 mg daily most days, and reports she had taken a dose of that during the day prior to her recent episode. Clonazepam is prescribed 1 mg t.i.d. and she reports she had reduced the dose. We did not get urine drug screen this admission. Her home medicine list is reviewed and does not include anything else that likely would be associated with seizure or encephalopathy with either intoxication or withdrawal. LABORATORY: Lab work this admission shows moderately elevated blood sugars, BUN climbing to 36, elevated troponin. IMAGING: Imaging this admission includes brain MRI done 08/15/2018 with and without contrast showing apparent recent left parietal infarction. This lesion is not apparent on CT scan done 08/13/2018. Carotid ultrasound showed mild stenosis in the internal carotid artery bilaterally, but no hemodynamically significant problem. Echocardiogram did not show mural thrombus, but did show patent foramina ovale. EXAMINATION: On exam now, Ms. Tadeo is awake, alert, attentive, oriented, appropriate. Speech is not dysarthric. Language function is intact on careful bedside testing. Recent and remote memory are good. Head and neck are unremarkable. There is no meningismus. Visual quiroz are full. Extraocular movements are full. Facial motility is symmetric. Gag is intact. Tongue is midline. She can hear. Shoulder shrug is equal. Strength is normal in the arms and legs. She did well on [id number] testing bilaterally. She reports diminished pinprick appreciation in a stocking pattern over the lower leg bilaterally. She has good pinprick appreciation equally over the hands. Proprioception is good at the great toe MTP joint bilaterally. Reflexes are 1+ at the knees and absent at the ankles bilaterally. Plantar response is silent bilaterally. I did not test her gait. IMPRESSION: 1. Isolated single episode, occurring 4 days ago, sounds like focal motor seizure involving the right arm. There is not definite history of generalization. She seemed recovered in 10 minutes. 2. Episodes 8-10 months ago are less certain to be seizure. Some of these sound like syncope and some may have been related to extreme hyperglycemia. 3. Imaging evidence of left parietal infarction which appears to be recent, but not acute. I do not find a definite deficit to correlate with that imaging finding. This would be a possible potential focus for focal seizure. She has risk factors for cerebrovascular ischemic problems. PLAN: I will order EEG. Decision regarding antiseizure medicine recommendation will depend on the EEG. We discussed potential clonazepam withdrawal and seizure risk, and she will be careful with that. Her history today does not suggest isolated clonazepam withdrawal as the reason for her recent episode. Thanks for asking Neurology to see Ms. Tadeo. cc: MD SCOTT Gasca III
[2018-08-16] MEDS: LYRICA PO SCH (21:36)
[2018-08-16] MEDS: FLEXERIL PO SCH (21:37)
[2018-08-17] MEDS: LOVENOX SUBQ SCH (06:32)
[2018-08-17] MEDS: HUMULIN R SUBQ SCH ×4 (06:32→21:29)
[2018-08-17 07:55] LABS: HEMATOCRIT 39.7 % (37.0-47.0); HEMOGLOBIN 12.9 g/dL (12.0-16.0); MCH 29.3 PG (27-31); MCHC 32.5 g/dL (33-37); MCV 90.2 FL (81-99); MPV 10.6 FL (7.4-10.4); RBC 4.4 XMIL (4.2-5.4); RDW 13.3 % (11.5-14.5); WBC 6.29 X1000 (4.8-10.8)
[2018-08-17 08:19] LABS: CREATININE 1.1 mg/dL (0.5-0.9); POTASSIUM 4.3 mmol/L (3.5-5.1)
[2018-08-17] MEDS: CYMBALTA PO SCH ×2 (08:45→21:27)
[2018-08-17] MEDS: ASPIRIN EC PO SCH (08:45)
[2018-08-17] MEDS: DYAZIDE PO SCH (08:45)
[2018-08-17] MEDS: GLUCOTROL PO SCH ×2 (08:45→17:15)
[2018-08-17] MEDS: LOPRESSOR PO SCH ×3 (08:45→17:14)
[2018-08-17] MEDS: HUMULIN 70/30 SUBQ SCH ×2 (08:45→21:27)
[2018-08-17] MEDS: KLONOPIN PO SCH ×3 (08:45→17:15)
[2018-08-17] MEDS: PROZAC PO SCH (08:45)
--- NOTE | 2018-08-17 12:06 | EEG REPORT ---
DATE: 08/17/2018 EEG: #[id number]. COMMENT: This is a digitally recorded EEG on a 62-year-old patient with recent focal right arm shaking, possible previous episodes of collapse, question of seizure. FINDINGS: During waking, medium amplitude 9 Hz posterior rhythm is present symmetrically, poorly sustained at times but reacting at times to eye opening. Background contains polymorphic and rhythmic theta frequencies at low amplitude across the frontal and central regions symmetrically. Drowsing occurred with appearance of more generalized slowing. Stage 2 sleep was not recorded. Hyperventilation was not done. Photic stimulation did not significantly alter the record. No definite epileptiform discharge was identified. INTERPRETATION: Normal EEG. CORRELATION: The absence of epileptiform discharges on a single EEG, does not exclude a clinical diagnosis of seizures, but there is nothing on this record to prove the presence of a seizure disorder. cc: Aurora Haq III, MD MTDD
[2018-08-17] MEDS: ROCEPHIN 1 GM in NS 50 ML IV SCH (13:48)
--- NOTE | 2018-08-17 15:37 | PROGRESS NOTE ---
DATE: 08/17/2018 SUBJECTIVE: The patient is resting comfortably in bed. She has no complaints at this time. No acute events noted overnight. OBJECTIVE: Vital Signs: Temperature 98, blood pressure 129/77, heart rate 67, respirations 19, O2 sats 94% on room air. General: This is an elderly female lying in bed in no acute distress. Heart: S1, S2 normal. Regular rate and rhythm. Lungs: Clear to auscultation bilaterally. Abdomen: Positive bowel sounds. Soft, nontender, nondistended. Extremities: No edema, no cyanosis. No calf tenderness. Neurologic: The patient is alert and oriented. LABS: Reviewed. ASSESSMENT AND PLAN: 1. Acute left parietal CVA. Continue on full-dose aspirin. Will add Lipitor. 2. Elevated troponin. We will await further recommendations from Cardiology. 3. Diabetes mellitus type 2. Continue on sliding scale insulin. 4. Urinary tract infection. The urine culture grew out mixed cate. Continue with Rocephin. Will transition to an oral antibiotic upon discharge. 5. DVT prophylaxis. Will start the patient on Lovenox. cc: Iraida Harvey MD
[2018-08-17] MEDS ORDERED: LOVENOX SUBQ SCH (16:00)
--- NOTE | 2018-08-17 16:50 | PROGRESS NOTE ---
DATE: 08/17/2018 ROOM: 323A Ms. Tadeo has not had any further episodes. Blood sugar control has improved. Her EEG does not show definite epileptiform discharge or focal slowing in the left hemisphere to correlate with her recent episode. Lengthy discussion with patient and and review of previous records. Based solely on the single, isolated recent focal episode, with negative EEG and stable course, I would not do anything further. However, in light of the previous history of episodes of collapse, fall, shaking, question of seizure then, I think it would be prudent to recommend that she take medicine for seizure control, at least short term. During that time, I encouraged her to be very aggressive with management of her blood sugar. She plans to become established with a local primary physician soon. We discussed several seizure medication options. She will start Aptiom 200 mg daily, titrating quickly to 400 mg daily. She has instructions to phone my office next week and I will follow her as an outpatient. Thanks for asking Neurology to see Ms. Tadeo. cc: MD SCOTT Gasca III
--- NOTE | 2018-08-17 19:08 | PROGRESS NOTE ---
DATE: 08/17/2018 SUBJECTIVE: The patient continues without chest discomfort or dyspnea or palpitations. OBJECTIVE: Vital Signs: Blood pressure 128/73, heart rate 73 and regular. Oxygen saturation 94% on room air. Cardiac: Reveals a regular rate and rhythm without appreciable murmur or gallop. Chest: Clear to auscultation. There is no evidence of peripheral edema. LABORATORY DATA: Includes a white blood cell count of 6.29 hematocrit 39.7 hemoglobin 12.9, platelet count 241,000. Sodium 139, potassium 4.3, chloride 105, carbon dioxide 22, BUN 27, creatinine 1.1. IMPRESSION: 1. Recent cerebrovascular accident in left parietal area. This occurred simultaneous with small troponin leak and suspicion was raised regarding possible cardiac source of embolus such as patent foramen ovale or occult atrial fibrillation. Indeed, she has been found to have a small patent foramen ova on transesophageal echocardiography. It is noteworthy that her cerebrovascular accident appeared to have occurred while she was on aspirin therapy. There is no significant carotid disease. 2. Associated seizure with her stroke. 3. Atherosclerotic coronary disease with previous coronary bypass grafting last year. Myocardial perfusion study this admission shows no evidence of inducible myocardial ischemia. 4. Diabetes mellitus, longstanding type 2. 5. Mild hypertension. 6. Cardiac source of embolus still suspect as potential mechanism for cerebrovascular accident. Small PFO has been identified. Occult atrial fibrillation not entirely excluded. RECOMMENDATIONS: 1. I am more in favor initiating anticoagulation with Eliquis 5 mg p.o. b.i.d. when acceptable from neurology standpoint. Neurology may wish to delay initiation of anticoagulation given recent cerebrovascular accident. Concern maybe that she might convert to a hemorrhagic infarct. Of course, we may be outside this window of concern. 2. Obtain 30 day event recorder at discharge to provide further screening for occult atrial fibrillation. 3. If no evidence of occult atrial fibrillation. On followup evaluation, may consider closure of PFO to allow patient to come off of anticoagulation. 4. It would be reasonable for patient to be discharged tomorrow to have followup with me in approximately 2 weeks. cc: Beau Emmanuel MD
[2018-08-17] MEDS ORDERED: LIPITOR PO SCH (21:00)
[2018-08-17] MEDS: FLEXERIL PO SCH (21:26)
[2018-08-17] MEDS: LYRICA PO SCH (21:27)
[2018-08-18] MEDS: HUMULIN R SUBQ SCH (06:16)
[2018-08-18 08:26] LABS: HEMATOCRIT 41.4 % (37.0-47.0); HEMOGLOBIN 13.7 g/dL (12.0-16.0); MCHC 33.1 g/dL (33-37); MCV 90.8 FL (81-99); MPV 10.6 FL (7.4-10.4); RBC 4.56 XMIL (4.2-5.4); RDW 13.2 % (11.5-14.5); WBC 8.27 X1000 (4.8-10.8)
[2018-08-18 08:48] LABS: CALCIUM 10.2 mg/dL (8.8-10.2); CREATININE 1.2 mg/dL (0.5-0.9); POTASSIUM 4.8 mmol/L (3.5-5.1)
[2018-08-18] MEDS: DYAZIDE PO SCH (10:26)
[2018-08-18] MEDS: CYMBALTA PO SCH (10:26)
[2018-08-18] MEDS: PROZAC PO SCH (10:26)
[2018-08-18] MEDS: LOPRESSOR PO SCH (10:26)
[2018-08-18] MEDS: GLUCOTROL PO SCH (10:27)
[2018-08-18] MEDS: ASPIRIN EC PO SCH (10:27)
[2018-08-18] MEDS: KLONOPIN PO SCH (10:27)
[2018-08-18] MEDS: HUMULIN 70/30 SUBQ SCH (10:28)
--- NOTE | 2018-08-18 12:38 | PROGRESS NOTE ---
DATE: 08/18/2018 Ms. Tadeo has not had any further episode of seizure or seizure-like behavior. We reviewed discussion of antiseizure medication options. Again, we will plan to start Aptiom, and I will follow her in the office. As discussed with Dr. Harvey, I believe the area of encephalomalacia seen on imaging is old enough that there is not significant contraindication to proceeding with anticoagulation at this time. Thanks for asking Neurology to see Ms. Tadeo. cc: Aurora Haq III, MD
[2018-08-18 13:25] VITALS: BP 109/72
[2018-08-18] MEDS ORDERED: ELIQUIS PO SCH (21:00)
--- NOTE | 2018-08-19 15:55 | DISCHARGE SUMMARY ---
ADMISSION DATE: 08/13/2018 DISCHARGE DATE: 08/18/2018 FINAL DISCHARGE DIAGNOSES: 1. Recent left parietal infarction. 2. Uncontrolled insulin-dependent diabetes mellitus. 3. Elevated troponin. 4. Coronary artery disease status post coronary artery bypass graft. 5. Seizure disorder. 6. Hypertension. 7. Small patent foramen ovale. 8. Urinary tract infection. CONSULTATIONS REQUESTED DURING THIS HOSPITAL STAY: 1. Cardiology consultation with Dr. Emmanuel. 2. Neurology consultation with Dr. Haq. PROCEDURE: ANALI performed on 08/16/2018 that revealed a small PFO. Ejection fraction 50%. No pericardial effusion or thrombus seen. HOSPITAL COURSE: Ms. Tadeo is a 62-year-old female with a history of coronary artery disease status post CABG, insulin-dependent diabetes and hypertension, who presented to the ER with right- sided weakness and tremor. The patient was initially admitted at [facility] and Cardiology was consulted. An MRI of the brain was done that revealed left parietal infarction. It was recommended by the stock raiser that the patient undergo a ANALI. Also, the patient was noted to have elevated troponins on admission with the initial troponin measuring 0.50. The patient was transferred to [facility]. A myocardial perfusion scan was done. The patient also had a ANALI done that revealed a small PFO. The patient was also seen by the neurologist due to her seizure activity, and he recommended starting the patient on seizure medication, which he will provide at his clinic. The patient also had a carotid Doppler study done that revealed mild stenosis in the proximal internal carotid artery of less than 40%. It was recommended by the stock raiser that the patient be started on Eliquis and to discontinue the aspirin. The patient was seen by the physical therapist and she was able ambulate without any difficulty, and she declined needing Home Health Services. The patient was ultimately cleared for discharge home on 08/18/2018. DISCHARGE MEDICATIONS: 1. Lipitor 40 mg p.o. at bedtime. 2. Eliquis 5 mg p.o. twice a day. 3. Aptiom 200 mg p.o. daily. 4. Lopressor 50 mg p.o. 3 times a day. 5. [place] 10/325 one tab oral every 4 hours p.r.n. for pain. 6. Cymbalta 60 mg p.o. twice a day. 7. Glucotrol 5 mg p.o. twice a day. 8. Prozac 40 mg p.o. daily. 9. Humulin 70/30 20 units subcutaneous twice a day. 10. Flexeril 10 mg p.o. at bedtime. 11. Lyrica 200 mg p.o. at bedtime. 12. Klonopin 1 mg p.o. 3 times a day. 13. Triamterene/hydrochlorothiazide 1 tab oral daily. DISCHARGE DIET: Low-sodium diet. ACTIVITY: As tolerated. FOLLOWUP INSTRUCTIONS: The patient will need to follow up with Dr. Emmanuel in 2 weeks as scheduled. The patient will also follow up with Dr. Haq as scheduled by his clinic. cc: Iraida Harvey MD
== END 2018-08-18 14:44 | disposition home or self-care (01) | DRG 65 ==
LOC: P.MEDSURG 23:16 → P.ED 23:16 → OBSVTOIN 08-13 04:50 → SUATTDRO 08-13 04:50 → 3N 08-15 20:25
PROVIDERS: ATTEND Internal Medicine
CPT/HCPCS: 70450; 70553; 71010; 71045; 71260; 78451; 80048; 80053; 81001; 82550; 82948; 83036; 83735; 83880; 84484; 85025; 85027; 85379; 85610; 87088; 93005; 93010; 93306; 93308; 93312; 93880; 94761; 95816; 96372; 97116; 97162; 97530; 99285; A9270; A9500; A9579; C8929; J0696; J1650; J1815; J7030; Q9957; Q9967; XXXXX

== ENCOUNTER 2018-09-20 14:45 | Inpatient (IN) ==
[2018-09-20] MEDS ORDERED: ASPIRIN PO ONE (15:05)
[2018-09-20 15:27] LABS: BASO# 0.04 X1000 (0.0-0.2); BASO% 0.4 % (0.0-0.8); EOS# 0.11 X1000 (0.0-0.7); HEMATOCRIT 43.6 % (37.0-47.0); HEMOGLOBIN 14.4 g/dL (12.0-16.0); IMM GRAN# 0.03 X1000 (0.0-0.04); IMM GRAN% 0.3 % (0.0-0.5); LYMPH# 1.28 X1000 (1.2-3.4); LYMPH% 12.1 % (20.5-51.1); MCH 29.6 PG (27-31); MCV 89.7 FL (81-99); MONO# 0.65 X1000 (0.11-0.59); MONO% 6.1 % (1.7-9.3); NEUT# 8.51 X1000 (1.4-6.5); NEUT% 80.1 % (42.2-75.2); PLT 278 X1000 (130-400); RBC 4.86 XMIL (4.2-5.4); RDW 13.2 % (11.5-14.5); WBC 10.62 X1000 (4.8-10.8)
--- NOTE | 2018-09-20 15:27 | EKG Report ---
Test Performed on : 09/20/2018 2:50:00 PM Test Reason : cp Blood Pressure : / mmHG Vent. Rate : 096 BPM Atrial Rate : 096 BPM P-R Int : 178 ms QRS Dur : 106 ms QT Int : 366 ms P-R-T Axes : 025 027 122 degrees QTc Int : 462 ms Normal sinus rhythm. Possible Left atrial enlargement Left ventricular hypertrophy with repolarization abnormality Abnormal ECG When compared with ECG of 26-AUG-2018 17:13, Criteria for Inferior infarct are no longer present T wave inversion more evident in Lateral leads Unconfirmed Result
[2018-09-20 15:33] LABS: INR 1.02; PROTIME 14.3 Seconds (11.0-16.0)
--- NOTE | 2018-09-20 15:37 | Diag Imaging Result Doc PS360 ---
EXAM: CHEST-PORTABLE - 09/20/2018 HISTORY: CP TECHNIQUE: Portable chest COMPARISON: 08/13/2018 FINDINGS: Heart size appears within normal limits. There are sternal wires from previous surgery again seen. There is stable mild tortuosity of the thoracic aorta. Inspiration is mildly shallow. The lungs appear clear. There is no pleural effusion or pneumothorax identified. IMPRESSION: Mildly shallow inspiration. No other evidence of acute disease. Electronically signed by Matthew Estrella 09/20/2018 3:35 PM
[2018-09-20] MEDS ORDERED: NITROGLYCERIN TOP ONE (15:52)
[2018-09-20] MEDS ORDERED: NS 1,000 ML IV ONE ×2 (15:52→16:41)
[2018-09-20 16:21] LABS: ALB/GLOB RATIO 1.5; ALBUMIN 4.4 g/dL (3.5-5.0); CALCIUM 9.8 mg/dL (8.8-10.2); CREATININE 1.3 mg/dL (0.5-0.9); MAGNESIUM 1.9 mg/dL (1.5-2.7); POTASSIUM 4.6 mmol/L (3.5-5.1); TOTAL BILIRUBIN 0.45 mg/dL (0.20-1.00); TOTAL PROTEIN 7.4 g/dL (6.3-8.3)
[2018-09-20] MEDS ORDERED: HUMULIN R IV ONE (16:41)
[2018-09-20] MEDS ORDERED: LOPRESSOR PO SCH (17:00)
[2018-09-20] MEDS ORDERED: LOVENOX 1 MG/KG SUBQ SCH (17:00)
[2018-09-20] MEDS ORDERED: LOPRESSOR ONE (17:04)
--- NOTE | 2018-09-20 17:12 | PROVIDER DOCUMENTATION ---
This chart was entered by Reyna Giordano Scribe, acting as scribe for Jamey Cheema MD. HPI-Chest Pain - General Chief Complaint: Chest Pain Stated Complaint: DR ALFONSO REF Time Seen by Provider: 09/20/18 15:04 Source: patient, family Allergies/Adverse Reactions: Patient Allergies Allergy/AdvReac Type Severity Reaction Status Date / Time metformin AdvReac DIARRHEA Verified 12/06/17 09:08 Home Medications: Home Medication List Medication Instructions Recorded Confirmed Last Taken Type Metoprolol [Lopressor] 50 mg PO TID 02/22/14 08/13/18 08/12/18 History 50mg Hydrocodone/APAP 10 mg/325 mg 1 each PO Q4H PRN PRN #30 tablet 03/31/16 08/13/18 Unknown Rx [[place]-10] Duloxetine [Cymbalta] 60 mg PO BID 12/04/17 08/13/18 08/12/18 History 60mg Glipizide [Glucotrol] 5 mg PO BID CC #60 tab 12/10/17 08/13/18 08/12/18 Rx 5mg Cyclobenzaprine [Flexeril] 10 mg PO QHS 08/13/18 08/13/18 08/12/18 History 10mg Fluoxetine [Prozac] 40 mg PO DAILY 08/13/18 08/13/18 08/12/18 History Hum Insulin NPH/Reg Insulin Hm 20 unit SQ BID 08/13/18 08/13/18 08/12/18 History [Novolin 70-30 100 Unit/ml Vial] Trazodone [Desyrel] 50 - 100 mg PO HS PRN PRN 08/13/18 08/13/18 08/11/18 History Triamterene/Hydrochlorothiazid 1 each PO DAILY 08/13/18 08/13/18 08/12/18 History [Triamterene-Hctz 37.5-25 mg Tb] 37.5/25 ATORVAstatin [Lipitor] 40 mg PO QHS #30 tab 08/18/18 Unknown Rx Apixaban [Eliquis] 5 mg PO BID #60 tab 08/18/18 Unknown Rx Clonazepam [Klonopin] 1 mg PO TID #90 tab 08/18/18 Unknown Rx Eslicarbazepine Acetate [Aptiom] 200 mg PO DAILY #30 tablet 08/18/18 Unknown Rx Pregabalin [Lyrica] 200 mg PO QHS #30 cap 08/18/18 Unknown Rx Ibuprofen 800 mg PO TID PRN #30 tab 08/26/18 Unknown Rx - History of Present Illness-CP Nature of Presenting Problem: 62 yof presents to the ed from dr powell office for chest pain. pt sts was on her way to the office and had acute onset of substernal chest pain, diaphoresis, incontinent of bowels x2, nausea and weakness. pt describes the chest pain as tightness and pressure and has resolved since being in ed. pt has hx of AL and CABG and sts had a CVA as well. pt sts while in the hospital recently she was visited by cardiology but is unsure of what was done. pt on exam is nontoxic in appearance pt sts her BGL has been high recently and unable to bring down Location: reports: substernal Chest Pain Radiation: reports: no radiation Quality of Pain: reports: pressure, tightness Severity in ED: mild Onset/Duration: just prior to arrival (was at dr powell office) Timing: gone now Context/Activities at Onset: reports: light activity Modifying Factors: improves with: nothing Associated Symptoms: reports: abdominal pain, diaphoresis, fatigue, nausea, weakness. denies: back pain, vomiting Nitro Today/Relief: provided by ED (nitro paste) Aspirin Treatment Today: 325 mg x 1, provided by ED Prior Chest Pain/Cardiac Workup: reports: cardiac cath, echocardiography, heart attack, stress test Similar Symptoms Previously?: Yes Recently Seen Here or By Another Healthcare Provider: Yes (dr powell today) Review of Systems - Adult - REVIEW OF SYSTEMS - ADULT Constitutional: reports: fatique. denies: chills, fever Eyes: reports: no symptoms reported Ears, Nose, Mouth & Throat: reports: no symptoms reported Cardiovascular: reports: see HPI, chest pain. denies: palpitations, syncope Respiratory: denies: cough, shortness of breath, wheezing Gastrointestinal: reports: abdominal pain, diarrhea, nausea. denies: vomiting Genitourinary: reports: see HPI, incontinence (BM) Musculoskeletal: reports: see HPI, muscle weakness Integumentary: reports: no symptoms reported Neurological: denies: dizziness/vertigo, headache/migraines Psychiatric: reports: no symptoms reported Endocrine: reports: see HPI, excessive sweating Hematologic/Lymphatic: reports: no symptoms reported Allergic/Immunologic: reports: no symptoms reported All Other Systems: Reviewed and Negative Past History - Adult - PAST MEDICAL HISTORY-ADULT Review of Records: reports: Old Records Reviewed, Nursing Assessment Review, Medications Reviewed, Social history reviewed & non-contributory. Major Childhood Illnesses: reports: history unknown Cardiovascular: reports: CAD, HTN, AL, other (tachycardia/hole in her heart) Respiratory: reports: denies history Gastrointestinal: reports: GERD Obstetrical/Gynecological: reports: denies history, other (menopausal for 10 years, still has uterus and ovaries) Genitourinary: reports: denies history Musculoskeletal: reports: denies history, other (neuropathy) Neurological: reports: CVA, Seizures/Epilepsy, TIA Psychiatric: reports: denies history, depression Endocrine/Immune: reports: Diabetes Diabetes Type: Type 2 Other Conditions: reports: denies history - PRIOR SURGERIES/PROCEDURES Surgical/Procedure History: reports: recent surgery (11/14/17), CABG (recent 11/14/17), tonsillectomy, other (varicose veins) - PRIOR HOSPITALIZATIONS Prior Hospitalizations: reports: none - IMMUNIZATION STATUS Childhood Immunizations: See Nurse Assessment Flu Vaccine: See Nurse Assessment - FAMILY HISTORY Family History: reviewed, not pertinent - SOCIAL HISTORY Smoking: denies Substance Use: denies Alcohol Use Frequency: never Living Situation: family Physical Exam-General - PHYSICAL EXAM-ADULT Initial Vital Signs Reviewed: Yes - CONSTITUTIONAL General Appearance: appears well, alert, no apparent distress (pt sts sx have resolved) - EYES Eyes: PERRL/EOMI, pink conjunctivae - HEAD, EARS, NOSE, MOUTH & THROAT HENMT: normocephalic/atraumatic, moist mucous membranes, normal ENT inspection - NECK Neck: non-tender, full range of motion, supple, normal inspection - RESPIRATORY Respiratory: chest non-tender, lungs clear, normal breath sounds - CARDIOVASCULAR Cardiovascular: normal peripheral pulses, regular rate, rhythm - GASTROINTESTINAL (ABDOMEN) Abdominal Exam: normal bowel sounds, non tender, soft - LYMPHATIC Lymphatic: no adenopathy - MUSCULOSKELETAL Back Exam: normal inspection, no CVA tenderness, no vertebral tenderness Extremity: normal range of motion, non-tender, normal gait, normal inspection - SKIN Integumentary: normal color, normal turgor, warm/dry - NEUROLOGIC Neurologic: grossly normal, no motor/sensory deficits - PSYCHIATRIC Psych/Mental Status: normal mood/affect, normal thought content, normal thought process, oriented x 3 - HEART Score HEART Score: History: Moderately Suspicious HEART Score: ECG: Non-Specific Repolarization Disturbance/LBBB/PM HEART Score: Age: 45-65 Years HEART Score: Risk Factors for Atherosclerotic Disease: > or = 3 Risk Factors or History of Atherosclerotic Disease HEART Score: Troponin: 1-3x Normal Limit Total HEART Score:: 6 Progress - PLAN OF CARE/RESULTS Progress/Plan/Lab Results: Vital Signs - 8 hr 09/20/18 14:59 09/20/18 15:00 09/20/18 15:02 Temperature 97.6 F Pulse Rate 91 H Respiratory Rate 20 Blood Pressure 125/75 125/75 O2 Sat by Pulse Oximetry 95 95 94 L 09/20/18 15:10 09/20/18 15:20 09/20/18 15:30 Temperature Pulse Rate Respiratory Rate Blood Pressure O2 Sat by Pulse Oximetry 97 96 94 L 09/20/18 15:32 09/20/18 15:40 09/20/18 15:50 Temperature Pulse Rate Respiratory Rate Blood Pressure 117/92 O2 Sat by Pulse Oximetry 95 87 L 09/20/18 16:00 09/20/18 16:02 Temperature Pulse Rate Respiratory Rate Blood Pressure 150/94 O2 Sat by Pulse Oximetry 94 L 94 L Laboratory Results - last 24 hr 09/20/18 09/20/18 09/20/18 15:05 15:05 15:05 WBC 10.62 RBC 4.86 Hgb 14.4 Hct 43.6 MCV 89.7 MCH 29.6 MCHC 33.0 RDW Std Deviation 13.2 Plt Count 278 MPV 11.0 H Immature Gran % (Auto) 0.3 Neut % (Auto) 80.1 H Lymph % (Auto) 12.1 L Potter % (Auto) 6.1 Eos % (Auto) 1.0 Baso % (Auto) 0.4 Immature Gran # (Auto) 0.03 Neut # (Auto) 8.51 H Lymph # (Auto) 1.28 Potter # (Auto) 0.65 H Eos # (Auto) 0.11 Baso # (Auto) 0.04 PT INR Sodium 134 L Potassium 4.6 Chloride 97 L Carbon Dioxide 19 L Anion Gap 18 BUN 23 H Creatinine 1.3 H Estimated GFR/1.73 m2 42 BUN/Creatinine Ratio 18 Glucose 632 H* Calculated Osmolality 301 Calcium 9.8 Magnesium 1.9 Total Bilirubin 0.45 AST 38 H ALT 48 H Alkaline Phosphatase 153 H Creatine Kinase 63 Troponin T Guv-U-Eswdzqtclef Pept 997 H Total Protein 7.4 Albumin 4.4 Globulin 3.0 Albumin/Globulin Ratio 1.5 Acetone Level 09/20/18 09/20/18 09/20/18 15:05 15:05 15:05 WBC RBC Hgb Hct MCV MCH MCHC RDW Std Deviation Plt Count MPV Immature Gran % (Auto) Neut % (Auto) Lymph % (Auto) Potter % (Auto) Eos % (Auto) Baso % (Auto) Immature Gran # (Auto) Neut # (Auto) Lymph # (Auto) Potter # (Auto) Eos # (Auto) Baso # (Auto) PT 14.3 INR 1.02 Sodium Potassium Chloride Carbon Dioxide Anion Gap BUN Creatinine Estimated GFR/1.73 m2 BUN/Creatinine Ratio Glucose Calculated Osmolality Calcium Magnesium Total Bilirubin AST ALT Alkaline Phosphatase Creatine Kinase Troponin T 0.502 H* Rih-A-Gswborkcrdv Pept Total Protein Albumin Globulin Albumin/Globulin Ratio Acetone Level NEGATIVE Orders Category Date Time Status Nursing- Obtain EKG once Care 09/20/18 15:04 Active Nursing- Obtain EKG once Care 09/20/18 17:00 Active Saline Loc NOW Care 09/20/18 15:04 Active CHEST-PORTABLE [RAD] Stat Exams 09/20/18 15:05 Completed CTA [CT ANGIOGRM PULMONARY ARTERIES] [CT] Stat Exams 09/20/18 15:32 Taken ABG [RESP] Routine Lab 09/20/18 16:42 Ordered ACETONE SERUM [CHEM] Stat Lab 09/20/18 15:05 Completed CBC WITH ELECTRONIC DIFF [HEME] Stat Lab 09/20/18 15:05 Completed CK PROFILE [SP CHEM] Stat Lab 09/20/18 15:05 Completed COMPREHENSIVE METABOLIC PANEL [CHEM] Stat Lab 09/20/18 15:05 Completed LIPID PROFILE W/CALC LDL [LIPIDS] Routine Lab 09/21/18 06:00 Uncollected MAGNESIUM [CHEM] Stat Lab 09/20/18 15:05 Completed PRO B-NATRIURETIC PEPTIDE Stat Lab 09/20/18 15:05 Completed PROTIME WITH INR [COAG] Stat Lab 09/20/18 15:05 Completed TROPONIN T Routine Lab 09/20/18 17:00 Uncollected TROPONIN T Stat Lab 09/20/18 15:05 Completed URINALYSIS W/POSS RFLX CULT [URINALYSIS] Stat Lab 09/20/18 16:43 Uncollected 0.9% Sodium Chloride Inj [Ns] 1,000 ml Med 09/20/18 15:52 Discontinued IV 999 mls/hr 0.9% Sodium Chloride Inj [Ns] 1,000 ml Med 09/20/18 16:41 Active IV 999 mls/hr ATORVAstatin [Lipitor] Med 09/20/18 21:00 Ordered 40 mg PO QHS Aspirin Med 09/20/18 15:05 Discontinued 325 mg PO NOW ONE Aspirin Med 09/21/18 09:00 Active 81 mg PO DAILY Enoxaparin [Lovenox] Med 09/20/18 17:00 Active 90 mg SUBQ Q12H Insulin Human Regular [Humulin R] Med 09/20/18 16:41 Discontinued 10 unit IV NOW ONE Metoprolol [Lopressor] Med 09/20/18 17:04 Discontinued 50 mg .ROUTE .STK-MED ONE Metoprolol [Lopressor] Med 09/20/18 17:00 Ordered 50 mg PO TID Nitroglycerin Med 09/20/18 15:52 Discontinued 0.5 inch TOP NOW ONE EKG [EKG] Stat Ther 09/20/18 15:04 Draft EKG [EKG] Stat Ther 09/20/18 17:00 Ordered Echo Spec/Color Dop W/O Contra Routine Ther 09/21/18 08:00 Ordered Result Diagrams: 09/20/18 15:05 09/20/18 15:05 - REASSESSMENT Reassessment #1 Time Reassessed: 17:10 Status: improving (Given IVF bolus, po asa/nitropaste and lovenox for ACS, given insulin for hyperglycemia) - EKG 1 Time of EKG reading by physician:: 14:04 EKG Read and Signed by:: Jamey Cheema EKG Interpretation (*Must complete 3 of following elements*): Abnormal Rate: 96 Rhythm: nsr [place]: normal QRS: LVH (with repolarization abnormality), other (possible left atrial enlargemetn) NE Interval: normal ST Wave: normal - XRAY 1 XRAY: Bilateral XRAY Study: Chest Impression: See EMR Report (EXAM: CHEST-PORTABLE - 09/20/2018 HISTORY: CP TECHNIQUE: Portable chest COMPARISON: 08/13/2018 FINDINGS: Heart size appears within normal limits. There are sternal wires from previous surgery again seen. There is stable mild tortuosity of the thoracic aorta. Inspiration is mildly shallow. The lungs appear clear. There is no pleural effusion or pneumothorax identified. IMPRESSION: Mildly shallow inspiration. No other evid ence of acute disease. Electronically signed by Matthew Estrella 09/20/2018 3:35 PM 09/20/18 1535 Interpreting Physician: Matthew Estrella MD Dictated Date/Time: 09/20/18 1534 cc: Jamey Cheema MD; Lee Ann Powell MD) - CONSULTS/PCP/HOSPITALIST Notification #1 *Consult/PCP/Hospitalist*: dr leon forest ecologist Time Discussed: 15:44 (Admit, stop eliquis, start lovenox, he will likely cath in 2-3 days) Reason/Comments: phone consult Consult Disposition: Will see in ED #2 Consult: hospitalistCathy Time Discussed: 17:10 (admit to Kim) Consult Disposition: Admit Departure - Departure Date of Disposition Decision: 09/20/18 Time of Disposition Decision: 17:11 DIAGNOSIS: Acute coronary syndrome, NSTEMI (non-ST elevated myocardial infarction), Type 2 diabetes mellitus with hyperglycemia, with long-term current use of insulin, Syncope, near Disposition: ADMITTED INPATIENT 09 Certified Medical Emergency: Emergent Condition: Fair Referrals and Follow-Ups: Lee Ann Powell MD [Primary Care Provider] - - Critical Care Note This patient required my direct & personal management of CC.: Yes Total Time (mins): 40 Critical Care Statement: This patient required my direct personal management to treat or rule out processes, the absence of which, could potentiallly result in sudden, clinically significant life or limb threatening deterioration. Attestation - Physician/ JAZMÍN Attestation Patient care was provided by Advanced Practice Provider:: No The physician spent face to face time with patient:: Yes Advanced Practice Provider documentation review:: Supervising physician onsite and consulted in the evaluation and care of this patient. The physician did have a face to face encounter with the patient. This chart was documented by the indicated scribe, (Reyna Giordano, Denisha) and accurately reflects the services I performed and decisions made by me, Jamey Cheema MD, as attested by the provider's signature.
[2018-09-20] MEDS: LOVENOX SUBQ SCH (17:28)
--- NOTE | 2018-09-20 17:31 | Diag Imaging Result Doc PS360 ---
EXAM: CT ANGIOGRM PULMONARY ARTERIES INDICATION: cp TECHNIQUE: This exam was performed using automated exposure control, adjustment of mA or kV according to patient size, and/or use of iterative reconstruction technique. Thin section axial images and 3-D MIPS were obtained. COMPARISON: Conventional CT chest dated 08/13/2018 FINDINGS: There is no evidence of pulmonary embolus. There is no evidence of aortic dissection or aneurysm. There is no evidence of cardiomegaly. There has been prior CABG. There is no significant mediastinal or hilar lymphadenopathy. There is mild subsegmental atelectasis at the lung bases. There are faint tree-in-bud opacities suggesting mild bronchiolitis involving the left upper lobe that can be seen from image 45 through 55 of series 5. These can be seen retrospectively on the previous study and are probably related to a chronic atypical infectious process. The lungs are clear, otherwise. There is no pleural fluid collection and no pneumothorax. Limited views of the upper abdomen are essentially unremarkable. IMPRESSION: 1.Very mild tree-in-bud opacities in the left upper lobe suggesting mild bronchiolitis, which can also be seen on the previous study. 2.Minimal bibasilar subsegmental atelectasis. 3.No evidence of pulmonary embolism. Electronically signed by Gabriel Camarena 09/20/2018 5:28 PM
--- NOTE | 2018-09-20 17:35 | ED EKG INTERP ---
EKG Interpretation - EKG Time of EKG reading by physician:: 17:34 EKG Read and Signed by:: Jamey Cheema EKG Interpretation (*Must complete 3 of following elements*): Abnormal Rate: 87 Rhythm: nsr QRS: normal, LVH OK Interval: normal ST Wave: non-specific ST changes Prior EKG Comparison: unchanged from prior Comments: CTA CHEST: EXAM: CT ANGIOGRM PULMONARY ARTERIES Attestation - Physician/ JAZMÍN Attestation Patient care was provided by Advanced Practice Provider:: No The physician spent face to face time with patient:: Yes Advanced Practice Provider documentation review:: Supervising physician onsite and consulted in the evaluation and care of this patient. The physician did have a face to face encounter with the patient.
[2018-09-20 18:19] LABS: ALLEN TEST YES; BE -5.1 mmoll (-3.0-3.0); BLOOD TYPE ARTERIAL; HCO3-(ACT) 20.9 mmoll (20.0-26.0); METHB 0.9 % (0.0-1.5); MODALITY ROOM AIR; O2(CT) 16.6 mL/dL (15.0-23.0); O2HB 93.5 % (95.0-99.0); PCO2(98.6) 36 mmHg (35-45); PO2(98.6) 65 mmHg (60-100); SAMPLE BLOOD; SAO2 95.4 % (95.0-100.0); THB 12.6 g/dL (11.5-17.4); pH(98.6) 7.35 (7.35-7.45)
--- NOTE | 2018-09-20 19:27 | HISTORY AND PHYSICAL ---
PRIMARY CARE PROVIDER: Lee Ann Powell MD CLIENT SUPPORT CONSULTANT: Leticia Stone M.D. CHIEF COMPLAINT: On and off chest pain for weeks. HISTORY OF PRESENT ILLNESS: Ms. Tadeo is a 62-year-old female who carries a past medical history of uncontrolled diabetes, last hemoglobin A1c was 12, coronary artery disease status post CABG in November [address] Messer, anxiety, depression, hypertension, and chronic pain disorder secondary to neuropathy, recent admission for CVA. She reports to the ED after she was going to see her PCP, Dr. Powell, today. She started having another episode of chest pain in the elevator that is "tightness and hurting". She states with this episode she did get short of breath and diaphoretic, but there was no radiation, no nausea or vomiting. She said it is like the chest pain that she had with her CABG; however, it does not go as deep or as intense. This has been going on and off for a couple of weeks now. She was referred to the ED by Dr. Powell. She was evaluated by cardiology. They want to stop her Eliquis, place her on full-dose Lovenox, and then I believe the plan is to transfer her to [facility] maybe on for heart catheterization. She does have elevated troponins; however, all her previous visits she has had positive troponins. She was also found to be hyperglycemic at 632. Her acetone level was negative. She does have chronic kidney disease as well as transaminitis. She reports that she is currently pain free, and she will be admitted to [facility] with chest pain orders. Her EKG did show I believe some mild tachycardia with LVH. Pulmonary arteriogram is currently pending. Her chest x- ray showed no evidence of acute disease. PAST MEDICAL HISTORY: 1. Recent CVA. 2. Coronary artery disease status post CABG. 3. Diabetes mellitus, uncontrolled, insulin dependent. 4. Anxiety and depression. 5. Hypertension. 6. Chronic pain disorder. 7. Neuropathy. PAST SURGICAL HISTORY: 1. CABG in November [address] Messer. 2. Inguinal abscess that was resected. 3. Varicose vein surgery. 4. Tonsillectomy. FAMILY HISTORY: Both parents of coronary artery disease. Her mother at the age of 40. Father at the age of 83. SOCIAL HISTORY: No tobacco. No alcohol. She is now disabled and on Medicaid. 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 She is . Her is at the bedside. Apparently, they lived in [place] and moved out of state, and when she was here for her first heart attack, they just happened to be visiting, and since then they have currently moved back to [place] because she could only see in- state doctors. They are now residing at [facility]. REVIEW OF SYSTEMS: A 14-point review of systems completely negative except for those mentioned in HPI. ALLERGIES: To metformin. HOME MEDICATIONS: Have not been reconciled. PHYSICAL EXAMINATION: VITAL SIGNS: Temperature is 97.6 degrees, heart rate 88, respirations 18, blood pressure 156/90, O2 is 96% on room air. GENERAL: Ms. Tadeo is a 62-year-old female who is lying on the stretcher in no acute distress. HEENT: Atraumatic, normocephalic. MAAME. NECK: Supple. Trachea midline. CARDIOVASCULAR: S1, S2 appreciated. Regular rate and rhythm. No murmurs, gallops, or rubs noted. PULMONARY: Bilateral breath sounds. Clear to auscultation. No rales, rhonchi, or wheezes. GASTROINTESTINAL: Soft, nontender, nondistended. Positive bowel sounds 4 quadrants. SKIN: Warm, dry, and intact. NEUROLOGIC: No focal deficits noted. The patient is alert and oriented x4. Follows commands. Answers all questions appropriately. DIAGNOSTIC DATA: Pulmonary arteriogram is pending. Chest x-ray: No acute disease. EKG: Normal sinus rhythm at 96 beats per minute with LVH. ASSESSMENT AND PLAN: 1. Chest pain in a patient with known coronary artery disease status post coronary artery bypass graft. with positive troponin (NSTEMI) She has been seen by Dr. Jonas Bain with Cardiology. She was started on full dose Lovenox. Continue on metoprolol. Continue on statin, p.o. Lasix, IV fluids. We will hold her Eliquis. I believe the plan is to watch her for the next couple of days and then send her to [place] for heart catheterization. Check an echocardiogram in the a.m. as well as a lipid profile. Continue to trend her cardiac enzymes. Again, she is currently chest pain free. 2. Uncontrolled diabetes mellitus with hyperglycemia. We will check another hemoglobin A1c. Her last one was 12. She states she has not been following her diet, and her blood sugars have been out of control for some time now. She was given 10 units of IV regular insulin. We will repeat, place her on pattern sugars and sliding scale. Continue with high rate IV fluids. 3. Anxiety and depression. We will continue home medications when reconciled. 4. Hypertension. We will continue with metoprolol. 5. Chronic pain disorder. We will continue with home medications again when reconciled. 6. Recent CVA with no deficits. 7. Appears to be chronic kidney disease. Again, we will continue with IV hydration. 8. Transaminitis. She has had transaminitis in the past. We will continue with IV fluids. Recheck in the a.m. 9. Further recommendations to follow physician evaluation, laboratory data and diagnostic data. Dictated by YAZMIN De La Cruz for Thong Kim MD cc: MD Lee Ann Pelletier MD Peter Johnson, MD I agree with most components of history, physical, assessment and plan. A separate addendum has been dictated. SCOTT
[2018-09-20] MEDS: HUMULIN 70/30 SUBQ SCH ×2 (20:00→22:24)
[2018-09-20] MEDS ORDERED: NITROGLYCERIN SL PRN (20:05)
[2018-09-20 20:43] LABS: URINE SOURCE CLEAN CATCH
--- NOTE | 2018-09-20 20:46 | CARDIOLOGY CONSULTATION ---
DATE: 09/20/2018 CHIEF COMPLAINT: On presentation was chest pain, diaphoresis. HISTORY OF PRESENT ILLNESS: Ms. Tadeo is a 62-year-old female with a history of [id number] myocardial infarction in November 2017 resulting in a 3 vessel bypass. She was on her way to a primary care physician's office today, when she had the onset of shortness of breath, severe diaphoresis and periodic episodes of chest tightness located in the mid chest. This was nonexertional and occurred at rest. This pain felt similar, but not as intense as what she had at the time of her non-ST elevation ID back in November 2017. The patient has not followed up with Dr. Stone again since the original evaluation. She reports compliance with her medications. It sounds like she has been initiated on apixaban. I am not sure the reason for this as it does not sound like she has been diagnosed with atrial fibrillation. It may have been started at the time of a transesophageal echo that demonstrated a patent foramen ovale. PAST MEDICAL HISTORY: 1. Significant for coronary disease with history of coronary bypass grafting. This was performed in November 2017. This was a MACK to the LAD, a vein graft to an obtuse marginal and a vein graft to the right coronary. 2. Diabetes mellitus. Last A1c was around 9. 3. Hypertension. 4. Hyperlipidemia. 5. Depression. SOCIAL HISTORY: She is . is present with her. She does not smoke. FAMILY HISTORY: Significant for hypertension. REVIEW OF SYSTEMS: A 10 system review of systems is negative except for those mentioned in HPI. PHYSICAL EXAM: Vital Signs: She is afebrile. Her heart rate is 91, blood pressure is 150/94. General: She is in no acute distress. HEENT: Oropharynx is moist. Poor dentition. Eye examination is pink conjunctivae. White sclerae. Neck: Examination shows no obvious thyromegaly or thyroid tenderness. Cardiovascular: She sounds to be in a regular rate and rhythm. She has no obvious murmurs. She has no S3. She has no lower extremity edema. Chest: Clear bilaterally. She has no increased work of breathing. Abdomen: Soft, nontender, nondistended. She has no obvious organomegaly. Skin Exam: Warm and dry throughout without any rashes. Neurological: Moving all extremities well. She has no lateralizing deficits. Psychiatric: Alert, oriented, pleasant. Normal mood and affect. PERTINENT DATA: Chest x-ray shows no evidence of acute findings. Her EKG at 1450 shows sinus rhythm, LVH. She has minimal ST depression in the high lateral leads. Otherwise, no obvious acute ischemic changes. She has subtle Q-waves inferiorly which seemed to have been present back in August at time of last hospitalization. EKG was reviewed by me. Her lab data shows a white count of 10.6, her hematocrit is 43, platelet count is 278. Sodium 134, potassium 4.6, BUN 23, creatinine 1.3. Her troponin is 0.502. ProBNP 992. ASSESSMENT: Ms. Tadeo is a 62-year-old female, who presented with complaints of chest discomfort and diaphoresis. She appears to have a non ST-elevation myocardial infarction. PLAN: We will initiate her on Lovenox. I have stopped her Apixaban. Last dose of that was this morning. We likely need to wait a couple of days prior to pursuing cardiac catheterization. I have re-initiated her beta-anna as well as her statin therapy. We will recheck a lipid profile in the morning. She certainly needs a more aggressive management of her diabetes, as her A1c are not in range. I have initiated stat aspirin therapy. We will check an echo in the morning. cc: Jonas Bain MD
[2018-09-20 20:47] LABS: BILIRUBIN URINE NEGATIVE (NEGATIVE); BLOOD URINE TRACE (NEGATIVE); COLOR YELLOW; GLUCOSE URINE >1000 mg/dL (NEGATIVE); KETONE URINE NEGATIVE (NEGATIVE); LEUKOCYTES URINE SMALL (NEGATIVE); NITRITE URINE NEGATIVE (NEGATIVE); PROTEIN URINE NEGATIVE (NEGATIVE); SP GRAVITY URINE 1.033; TURBIDITY URINE CLEAR (CLEAR); UROBILINOGEN URINE NORMAL (NORMAL)
[2018-09-20 20:51] LABS: UR EPITHELIAL CELLS <10 /HPF (<10); URINE BACTERIA 1+ /HPF; URINE RBC <10 /HPF (<10)
[2018-09-20] MEDS: HUMALOG SUBQ SCH (21:00)
[2018-09-20] MEDS ORDERED: LIPITOR PO SCH (21:00)
--- NOTE | 2018-09-20 21:05 | HISTORY AND PHYSICAL ---
ADDENDUM: I agree with most components of history, physical, assessment and plan. In brief Ms. Tadeo 62 years old lady with past medical history coronary artery disease and CABG in 2018 who comes in with complaints of sudden onset chest pain in the center of the chest associated with shortness of breath and diaphoresis when she was at her primary care doctor performed EKG and had send patient to the emergency room, by the time patient came to the emergency room chest pain episode had resolved. On arrival patient was found to have troponin elevation of 0.502 which after 2 hours had increased to 0.518, on reviewing previous lab she did have chronically elevated troponin reported in July and August 2018 with a similar level of elevation. Her EKG had Q-waves in lead [address] depressions on lead 1 and aVL which were more pronounced than previous EKG so cardiology was consulted though patient was already given aspirin 325 mg. Cardiology had recommended enoxaparin therapeutic dose and beta anna which patient was started on. Currently her vitals evaluation suggests her vitals are unremarkable with afebrile and temperature of 97.6 degrees, pulse of 88, respiratory rate 18, blood pressure 156/90 saturating 96% on 2 L nasal cannula. PHYSICAL EXAMINATION: Air entry bilaterally equal, no wheeze rhonchi, crackles. S1, S2 normal no murmur rub or gallop. ABDOMEN: Nontender. No jugular venous distention. No hepatosplenomegaly. No lower extremity edema. She had prior history of stroke. ASSESSMENT AND PLAN: 1. Suspected acute coronary syndrome with non ST elevation myocardial infarction versus type 2 myocardial infarct. Continue patient on daily aspirin, high-dose statin, therapeutic dose of enoxaparin. Cardiology has been consulted for need for diagnostic angiography I will appreciate recommendation. Currently patient is chest pain free . I will give her nitroglycerin sublingual if she further experiences chest pain . 2. Hyperglycemia with history of insulin-dependent diabetes mellitus. I will start patient on her home dose of insulin NPH 70/30 starting now. Will check frequent blood sugars. 3. Other comorbidities include history of cerebrovascular accident, essential hypertension, hyperlipidemia. 4. Plan of care discussed with patient and her family members at bedside, all of the questions have been satisfactorily answered . cc: MD SCOTT Pelletier
[2018-09-20 21:11] LABS: URINE YEAST PRESENT
[2018-09-20] MEDS ORDERED: INSULIN PEN NEEDLES ONE (22:20)
[2018-09-20] MEDS: LYRICA PO SCH (23:03)
[2018-09-21] MEDS: LOVENOX SUBQ SCH ×2 (06:17→17:13)
[2018-09-21 07:46] LABS: CHOLESTEROL 159 mg/dL (0-200); HDL 46 mg/dL (45-65); LDL 76 mg/dL; TRIGLYCERIDES 187 mg/dL (35-135); VLDL 37 mg/dL
[2018-09-21] MEDS: HUMULIN 70/30 SUBQ SCH ×2 (08:06→20:35)
[2018-09-21] MEDS ORDERED: INSULIN PEN NEEDLES ONE (08:06)
[2018-09-21] MEDS: HUMALOG SUBQ SCH ×5 (08:06→20:38)
[2018-09-21] MEDS: LOPRESSOR PO SCH ×4 (08:08→17:13)
--- NOTE | 2018-09-21 08:20 | EKG Report ---
Test Performed on : 09/20/2018 5:21:44 PM Test Reason : REPEAT CHEST PAIN Blood Pressure : / mmHG Vent. Rate : 087 BPM Atrial Rate : 087 BPM P-R Int : 186 ms QRS Dur : 108 ms QT Int : 382 ms P-R-T Axes : 033 020 050 degrees QTc Int : 459 ms Normal sinus rhythm. Minimal voltage criteria for LVH, may be normal variant Cannot rule out Anterior infarct , age undetermined Abnormal ECG When compared with ECG of 20-SEP-2018 14:50, (Unconfirmed) No significant change was found Unconfirmed Result
[2018-09-21] MEDS ORDERED: ASPIRIN PO SCH (09:00)
--- NOTE | 2018-09-21 09:30 | EKG Report ---
Test Performed on : 09/21/2018 09:17:06 AM Test Reason : Follow up ST T changes in anterior leads Blood Pressure : / mmHG Vent. Rate : 085 BPM Atrial Rate : 085 BPM P-R Int : 192 ms QRS Dur : 094 ms QT Int : 348 ms P-R-T Axes : 055 017 085 degrees QTc Int : 414 ms Normal sinus rhythm. Minimal voltage criteria for LVH, may be normal variant Possible Inferior infarct , age undetermined T wave abnormality, consider lateral ischemia Abnormal ECG When compared with ECG of 20-SEP-2018 17:21, (Unconfirmed) No significant change was found Unconfirmed Result
[2018-09-21 09:43] LABS: BASO# 0.03 X1000 (0.0-0.2); BASO% 0.3 % (0.0-0.8); EOS# 0.17 X1000 (0.0-0.7); EOS% 1.8 % (0.0-10.0); HEMATOCRIT 40.2 % (37.0-47.0); HEMOGLOBIN 13.3 g/dL (12.0-16.0); IMM GRAN# 0.02 X1000 (0.0-0.04); IMM GRAN% 0.2 % (0.0-0.5); LYMPH# 2.28 X1000 (1.2-3.4); LYMPH% 24.1 % (20.5-51.1); MCH 29.7 PG (27-31); MCHC 33.1 g/dL (33-37); MCV 89.7 FL (81-99); MONO# 0.66 X1000 (0.11-0.59); MPV 10.4 FL (7.4-10.4); NEUT# 6.31 X1000 (1.4-6.5); NEUT% 66.6 % (42.2-75.2); PLT 228 X1000 (130-400); RBC 4.48 XMIL (4.2-5.4); RDW 13.3 % (11.5-14.5); WBC 9.47 X1000 (4.8-10.8)
[2018-09-21] MEDS ORDERED: ASPIRIN EC PO SCH (11:21)
[2018-09-21] MEDS ORDERED: MORPHINE IV PRN (11:21)
[2018-09-21] MEDS ORDERED: NITROGLYCERIN SL PRN (11:21)
[2018-09-21] MEDS ORDERED: ZOFRAN IV PRN (11:21)
[2018-09-21] MEDS ORDERED: TYLENOL PO PRN (11:21)
[2018-09-21] MEDS: PRILOSEC PO SCH (11:51)
[2018-09-21 12:15] LABS: ALB/GLOB RATIO 1.4; ALBUMIN 3.7 g/dL (3.5-5.0); CALCIUM 9.4 mg/dL (8.8-10.2); POTASSIUM 4.3 mmol/L (3.5-5.1); TOTAL BILIRUBIN 0.38 mg/dL (0.20-1.00); TOTAL PROTEIN 6.3 g/dL (6.3-8.3)
[2018-09-21 12:27] LABS: HEMOGLOBIN A1C 10.1 % (4.8-6.0)
--- NOTE | 2018-09-21 13:14 | ED EKG INTERP ---
This chart was entered by Lina Proctor Scribe, acting as scribe for Mark Arroyo MD. EKG Interpretation - EKG Time of EKG reading by physician:: 09:22 EKG Read and Signed by:: Mark Arroyo EKG Interpretation (*Must complete 3 of following elements*): Abnormal Rate: 85 Rhythm: NSR [place]: normal QRS: LVH (minimal voltage criteria), other (possible inferior infarct) [place] Interval: normal ST Wave: non-specific ST changes Attestation - Physician/ JAZMÍN Attestation Patient care was provided by Advanced Practice Provider:: No The physician spent face to face time with patient:: Yes Advanced Practice Provider documentation review:: Supervising physician onsite and consulted in the evaluation and care of this patient. The physician did have a face to face encounter with the patient. This chart was documented by the indicated scribe, (Lina Proctor Scribe) and accurately reflects the services I performed and decisions made by me, Mark Arroyo MD, as attested by the provider's signature.
[2018-09-21 13:50] LABS: INR 1.09
[2018-09-21 13:51] LABS: PTT 34.8 Seconds (22.3-41.8)
--- NOTE | 2018-09-21 14:04 | PROGRESS NOTE ---
DATE: 09/21/2018 INTERVAL HISTORY: Yesterday, when she was admitted and transferred over to [facility], it looks like the transfer orders were not processed by the emergency department. Unfortunately, the patient did not get morning labs. She fortunately received her enoxaparin and beta blockers in a timely fashion. In the morning time, I had ordered stat labs. I had called the patient's nurse and informed her about getting an EKG if it was not done in the morning time, getting a troponin, and had the medication that were essential to be given. SUBJECTIVE: Patient denies any episode of chest pain or shortness of breath. She states that she does not have a known history of seizure. There was a previous episode which was thought to be a mini-stroke. For a brief period, she took a trial of medications prescribed by the neurologist which is listed as Aptiom 200 mg, but she is no longer taking it. I again placed orders to update and confirm the home medication list. We discussed about elevated troponin and EKG changes. I answered all of their questions. The patient's is at bedside. All of their questions have been answered currently. PHYSICAL EXAMINATION: Vital Signs: Temperature of 97.8 degrees, pulse 78, respiratory rate 18 per minute, and blood pressure 139/70. She is saturating 92% on 2 L nasal cannula. General: She does not appear in any acute distress. Oral cavity is moist. Lungs: Air entry bilaterally equal. No wheeze, rhonchi, or crackles. Cardiovascular: S1, S2 normal. No murmur, rub, or gallop. Abdomen: Soft, nontender. No jugular venous distention. No hepatosplenomegaly. Extremities: No lower extremity edema. Neurologic: She is alert and oriented x3. LABORATORY: Labs suggests no leukocytosis, stable hemoglobin and hematocrit, and platelet count. BMP suggestive of resolution of hyponatremia, hypochloremia, low bicarbonate of what appears to be chronic kidney disease stage 3 currently at her baseline. She does have hyperglycemia. However, it is well controlled than yesterday. Her recent troponin is 1.4. On microbiology, there was urine culture which was sent to the lab. However, patient did not have any urine symptoms, and I would not treat it with antibiotics. IMAGING: EKG performed in the morning time suggests normal sinus rhythm voltage criteria for left ventricular hypertrophy at present. There is possible inferior infarct considering Q-waves in lead 3, and minor Q-waves in lead AVF, but there were no other appreciable changes when compared to yesterday's EKG. ASSESSMENT AND PLAN: 1. Chest pain in the setting of known history of coronary artery disease status post CABG in the past, likely currently non ST elevation myocardial infarction. Continue to trend troponin. Cardiology is on board. Continue with aspirin, high dose statin, enoxaparin subcu q.12 hours, nitroglycerin p.r.n., and beta anna, metoprolol. I appreciate Cardiology's recommendation about need for coronary angiography or transfer to higher level of care depending on her course. 2. Uncontrolled diabetes mellitus with hemoglobin A1c more than 10 and hyperglycemia. Continue home regimen of NPH and sliding scale insulin. Currently, in better control than before. Continue frequent blood sugar checks. 3. Anxiety and depression with chronic pain. Continue home pregabalin. I will add back other home medications once they are reconciled. 4. Essential hypertension. Continue metoprolol. 5. Recent CVA without any motor deficits aware. Continue aspirin and statin. 6. Chronic kidney disease stage 3, status post intravenous hydration. 7. Disposition. Patient has a transfer to [facility] orders pending bed availability. Plan of care discussed with the patient and at bedside. All of their questions have been answered. Further course will be determined by Cardiology in terms of further cardiac diagnostic workup. cc: Thong Kim MD MTDD
[2018-09-21] MEDS ORDERED: NORCO-10 PO PRN (14:23)
[2018-09-21 14:34] LABS: MAGNESIUM 1.8 mg/dL (1.5-2.7)
--- NOTE | 2018-09-21 15:05 | CARDIOLOGY PROGRESS NOTE ---
DATE: 09/21/2018 SUBJECTIVE: Ms. Tadeo has not had any chest pain overnight. PHYSICAL EXAMINATION: Vital signs: She is afebrile. Heart rate is 77, blood pressure 130/68. General: She is in no acute distress. Cardiovascular: She sounds to be in a regular rate and rhythm. I do not hear any obvious murmurs. She has no S3. She has no lower extremity edema. Chest: Clear bilaterally. No increased work of breathing. Abdomen: Soft, nontender. PERTINENT DATA: Her white count is 9.5, hematocrit is 40 platelet count is 228,000. Her INR is 1.09. Her sodium is 139, potassium 4.3, BUN 19, creatinine is 1. Her A1c is 10.1, her LDL yesterday was 76. Her troponin has continued to trend. Is 1.480. ASSESSMENT: Ms. Tadeo is a 62-year-old female who presented with a [id number] myocardial infarction. PLAN: Her electrocardiogram was reviewed. She has inferior Q-waves which were actually present prior to her presenting to the hospital. She does not have any clear ischemic changes on her EKG. She is on antianginals in the form of metoprolol. She continues on treatment dose Lovenox as well as aspirin. She is on high-intensity statin. I have actually increased it up to 80 mg of atorvastatin. She is tentatively on the schedule for transfer to [facility] in the morning. I have made her n.p.o. after midnight with appropriate laboratories. Left heart catheterization will be performed hopefully tomorrow. Risks, benefits and alternatives of the procedure have been explained to the patient. She agrees to proceed. cc: Jonas Bain MD
--- NOTE | 2018-09-21 16:23 | ECHO REPORT ---
ORDER DATE: 09/21/2018 INDICATION FOR STUDY: Chest pain and non ST-elevation [place]. FINDINGS: 1. The right atrium appears normal in size at 2.2 cm. 2. Mild tricuspid regurgitation. RV systolic pressure of 37. 3. Normal RV size and systolic function. 4. No significant pulmonic insufficiency. 5. Mild left atrial enlargement with a volume index of 29. 6. No mitral valve prolapse. Mild mitral regurgitation. 7. Normal LV size, end-diastolic dimension of 4.3 cm. Moderate to approaching severe left ventricular hypertrophy with a posterior and interventricular septal wall thickness of 1.4 and 1.7 cm, respectively. Normal LV systolic function. The estimated EF is 55%. Segmental wall motion analysis on this study is very difficult, but there does not appear to be any clear evidence of segmental wall motion abnormalities. 8. The aortic valve opens well. It is trileaflet. Mild insufficiency. No evidence of stenosis. 9. The aorta appears normal in visualized segments. 10. No pericardial effusion seen. cc: Jonas Bain MD
[2018-09-21] MEDS: KLONOPIN PO SCH ×2 (16:59→20:36)
[2018-09-21] MEDS: LYRICA PO SCH (20:37)
[2018-09-21] MEDS ORDERED: LIPITOR PO SCH (21:00)
[2018-09-22 05:43] LABS: BASO# 0.03 X1000 (0.0-0.2); BASO% 0.4 % (0.0-0.8); EOS# 0.12 X1000 (0.0-0.7); EOS% 1.8 % (0.0-10.0); HEMATOCRIT 38.3 % (37.0-47.0); HEMOGLOBIN 12.7 g/dL (12.0-16.0); LYMPH# 2.62 X1000 (1.2-3.4); LYMPH% 38.4 % (20.5-51.1); MCH 29.9 PG (27-31); MCHC 33.2 g/dL (33-37); MCV 90.1 FL (81-99); MONO# 0.65 X1000 (0.11-0.59); MONO% 9.5 % (1.7-9.3); MPV 10.8 FL (7.4-10.4); NEUT% 49.9 % (42.2-75.2); PLT 209 X1000 (130-400); RBC 4.25 XMIL (4.2-5.4); RDW 13.1 % (11.5-14.5); WBC 6.82 X1000 (4.8-10.8)
[2018-09-22 05:44] LABS: INR 0.96; PROTIME 13.5 Seconds (11.0-16.0)
[2018-09-22] MEDS: LOVENOX SUBQ SCH (06:15)
[2018-09-22 06:19] LABS: CALCIUM 9.6 mg/dL (8.8-10.2); POTASSIUM 4.1 mmol/L (3.5-5.1)
[2018-09-22] MEDS: PRILOSEC PO SCH (06:27)
[2018-09-22] MEDS: HUMALOG SUBQ SCH (06:37)
[2018-09-22 07:05] VITALS: BP 125/55
[2018-09-22] MEDS ORDERED: PROZAC PO SCH (09:00)
--- NOTE | 2018-09-23 19:18 | DISCHARGE SUMMARY ---
ADMISSION DATE: 09/20/2018 DISCHARGE DATE: 09/22/2018 DISCHARGE DISPOSITION: She was transferred most likely to [facility]. I had seen this patient on September 21 and it looks like the patient was discharged on September 22 before the [facility] physician on September 22 at [facility] could see her and so I am dictating the discharge summary. DISCHARGE DIAGNOSES: 1. Non ST-elevation myocardial infarction. 2. Acute precordial chest pain with coronary artery bypass with diaphoresis in the setting of angina, likely because of coronary artery disease. 3. History of coronary artery disease status post coronary artery bypass graft in 2018. 4. Uncontrolled diabetes mellitus type 2 with hyperglycemia 5. History of anxiety and chronic pain. 6. History of essential hypertension. 7. History of cerebrovascular accident. 8. History of chronic kidney disease stage 3. CONSULTATIONS DURING HOSPITALIZATION: [employer], Dr. Jonas Bain. DISCHARGE MEDICATIONS: I could not perform a proper medical reconciliation. However, at the time of discharge, the patient was on: 1. Enoxaparin 1 mg/kg q.12 hours dose for NSTEMI. 2. She was on metoprolol 50 mg 3 times a day. 3. Atorvastatin 80 mg at nighttime. 4. NPH 70/30 insulin 20 units b.i.d., sliding scale insulin with meals and at nighttime. 5. Clonazepam 1 mg t.i.d. Other medications: 1. She was on cyclobenzaprine 10 mg at nighttime p.r.n. as per the history. 2. Duloxetine 60 mg p.o. b.i.d. as per the history. 3. Fluoxetine 40 mg daily, as per the history. 4. Lyrica 100 mg at nighttime. VITALS: At the time of discharge, on reviewing the chart on September 22 at 4 a.m., it appears that the patient's temperature was 98.2, pulse 71, blood pressure 125/85. She was saturating 95% on room air. HOSPITAL COURSE SUMMARY: Ms. Tadeo is a 62-year-old, lady, with past medical history of coronary artery disease status post CABG in November 2017, anxiety, depression, hypertension, chronic pain secondary to neuropathy and recent CVA who was at her primary care provider's office when she suddenly started having chest pain which was described as tightness and hurting, associated with diaphoresis and dyspnea without any radiation. Her primary care provider had referred her to the emergency room. In the emergency room, she was found to have elevated troponins with troponin close to 0.5 though she previously had elevated troponins as well. However, EKG this time had suggested ST depression on lead 1 aVL, which were more pronounced than previous EKG. Considering this to be an episode of non ST elevation myocardial infarction, the patient was started on enoxaparin subcu q.12 hours 1 mg/kg dose per cardiology and she was continued on metoprolol. Notably, she was also given aspirin 325 mg. At the time patient was in the emergency room, she was chest pain free. Overnight, the patient remained in the emergency room since there were no beds in [facility]. Unfortunately, the admission orders which were left in the meantime were not pursued by emergency room department and patient did not get her troponin monitoring by the emergency room, which in the morning time I had called the nurse and placed a stat order. The repeat troponin had suggested she did have elevation of her troponin from yesterday which was in the morning time more than 1 point which was 1.48. The patient continued nursing treatment with aspirin, enoxaparin, beta anna and high-dose statin. Cardiology was notified of the elevated troponin and I was conveyed that the patient has likely plans of being transferred to [facility] for further management tomorrow. I was off the next day. However, reviewing the chart, patient was transferred before the hospitalist that day could see her I assume. TIME SPENT: Less than 30 minutes spent in this preparing discharge summary of this patient. cc: Thong Kim MD
== END 2018-09-22 07:55 | disposition short-term general hospital (02) | DRG 282 ==
LOC: ED 14:45 → EDIPHOLD 17:56 → SUATTDRO 17:56 → 3S 09-21 16:29
PROVIDERS: ATTEND Internal Medicine
CPT/HCPCS: 71010; 71045; 71275; 80048; 80053; 80061; 81001; 82009; 82550; 82805; 82948; 83036; 83735; 83880; 84484; 85025; 85610; 85730; 87088; 93005; 93306; 94761; 96372; 96374; 96376; 99285; 99291; A9270; J1650; J1815; J7030; Q9967; XXXXX

== ENCOUNTER 2019-04-17 10:36 | Inpatient (IN) ==
[2019-04-17] MEDS ORDERED: NS 1,000 ML IV ONE (11:26)
--- NOTE | 2019-04-17 11:53 | Diag Imaging Result Doc PS360 ---
CHEST-PORTABLE - 04/17/2019 INDICATION: syncope COMPARISON: 09/20/2018 FINDINGS: Stable sternotomy wires. The lungs are clear. Heart size is normal. No pneumothorax or pleural effusion. IMPRESSION: Negative exam. Electronically signed by Ole Ramirez 04/17/2019 11:50 AM
[2019-04-17 12:00] LABS: BASO# 0.02 X1000 (0.0-0.2); BASO% 0.2 % (0.0-0.8); EOS# 0.15 X1000 (0.0-0.7); EOS% 1.5 % (0.0-10.0); HEMATOCRIT 42.6 % (37.0-47.0); HEMOGLOBIN 14.2 g/dL (12.0-16.0); IMM GRAN# 0.03 X1000 (0.0-0.04); IMM GRAN% 0.3 % (0.0-0.5); LYMPH# 1.62 X1000 (1.2-3.4); LYMPH% 16.2 % (20.5-51.1); MCHC 33.3 g/dL (33-37); MCV 89.9 FL (81-99); MONO# 0.74 X1000 (0.11-0.59); MONO% 7.4 % (1.7-9.3); MPV 10.9 FL (7.4-10.4); NEUT# 7.42 X1000 (1.4-6.5); NEUT% 74.4 % (42.2-75.2); PLT 269 X1000 (130-400); RBC 4.74 XMIL (4.2-5.4); RDW 12.3 % (11.5-14.5); WBC 9.98 X1000 (4.8-10.8)
[2019-04-17 12:04] LABS: INR 0.97
[2019-04-17 12:05] LABS: PTT 25.4 Seconds (22.3-41.8)
--- NOTE | 2019-04-17 12:05 | EKG Report ---
Test Performed on : 04/17/2019 11:52:21 AM Test Reason : syncope Blood Pressure : / mmHG Vent. Rate : 069 BPM Atrial Rate : 069 BPM P-R Int : 208 ms QRS Dur : 094 ms QT Int : 380 ms P-R-T Axes : 018 -01 079 degrees QTc Int : 407 ms Normal sinus rhythm. Voltage criteria for left ventricular hypertrophy Inferior infarct (cited on or before 20-SEP-2018) Abnormal ECG When compared with ECG of 21-SEP-2018 09:17, No significant change was found Unconfirmed Result
[2019-04-17 12:28] LABS: ALB/GLOB RATIO 1.2; ALBUMIN 4.2 g/dL (3.5-5.0); CALCIUM 10.3 mg/dL (8.8-10.2); CREATININE 1.5 mg/dL (0.5-0.9); MAGNESIUM 1.9 mg/dL (1.5-2.7); POTASSIUM 5.5 mmol/L (3.5-5.1); TOTAL BILIRUBIN 0.32 mg/dL (0.20-1.00); TOTAL PROTEIN 7.6 g/dL (6.3-8.3)
[2019-04-17] MEDS ORDERED: HUMULIN R IV ONE (12:48)
[2019-04-17] MEDS ORDERED: ASPIRIN PO ONE (12:51)
--- NOTE | 2019-04-17 12:55 | PROVIDER DOCUMENTATION ---
This chart was entered by Hali Holloway Scribe, acting as scribe for Jamey Cheema MD. HPI-Syncope/Dizziness - General Chief Complaint: Near Syncope Stated Complaint: SYNCOPE Time Seen by Provider: 04/17/19 10:58 Source: patient Allergies/Adverse Reactions: Patient Allergies Allergy/AdvReac Type Severity Reaction Status Date / Time metformin AdvReac DIARRHEA Verified 04/17/19 11:18 Home Medications: Home Medication List Medication Instructions Recorded Confirmed Last Taken Type Metoprolol [Lopressor] 50 mg PO BID 02/22/14 04/17/19 08/12/18 History 50mg Duloxetine [Cymbalta] 60 mg PO BID 12/04/17 04/17/19 08/12/18 History 60mg Glipizide [Glucotrol] 5 mg PO BID CC #60 tab 12/10/17 04/17/19 08/12/18 Rx 5mg Cyclobenzaprine [Flexeril] 10 mg PO QHS PRN 08/13/18 04/17/19 08/12/18 History 10mg Fluoxetine [Prozac] 10 mg PO DAILY 08/13/18 04/17/19 08/12/18 History Ibuprofen 800 mg PO TID PRN #30 tab 08/26/18 04/17/19 Unknown Rx Amlodipine [Norvasc] 2.5 mg PO DAILY 04/17/19 04/17/19 Unknown History Clonazepam [Klonopin] 1 mg PO DAILY 04/17/19 04/17/19 Unknown History Exenatide Microspheres [Bydureon ORDERED 04/17/19 Unknown History Bcise] Insulin Glargine,Hum.rec.anlog 20 units SUBQ DAILY 04/17/19 04/17/19 Unknown History [Lantus Solostar] Pregabalin [Lyrica] 200 mg PO BID 04/17/19 04/17/19 Unknown History - History of Present Illness-Syncope/Dizzy Nature of Presenting Problem: 63yof presents to ED cc dehydrated, low blood pressure and syncopal episode at her PCP this morning. Pt reports she has been seen numerous times for similar episodes and always feels better after fluids. Pt also report she had open heart surgery 11/26 and TIA 6 months ago. Pt is in no acute distress upon exam. Prior Episodes: reports: recent history Onset/Duration: reports: this morning Timing: reports: resolved prior to arrival Position/Activity at time of episode: reports: activity Symptoms prior to episode: reports: lightheaded Context: reports: collapsed Loss of Consciousness: no loss of consciousness Location of injury. (If syncope resulted in an injury.): reports: none Current Symptoms: reports: lightheaded, dizzy Similar symptoms previously: reports: previous diagnosis, tests, workup for same problem Recently Seen Here or By Another Healthcare Provider: Yes (was seen by PCP this morning) - Dizziness Severity in ED: reports: mild Dizziness Related Current/Associated Symptoms: reports: lightheaded, dizzy Any recent trauma/injury?: reports: none Modifying Factors: improves with: standing position Patient usually:: reports: walks without assistance Review of Systems - Adult - REVIEW OF SYSTEMS - ADULT Constitutional: reports: see HPI, fatique. denies: chills, fever Eyes: reports: no symptoms reported Ears, Nose, Mouth & Throat: reports: see HPI, other (dehydrated) Cardiovascular: reports: see HPI, other (low blood pressure). denies: chest pain, palpitations Respiratory: reports: no symptoms reported Gastrointestinal: reports: no symptoms reported Genitourinary: reports: no symptoms reported Musculoskeletal: reports: no symptoms reported Integumentary: reports: no symptoms reported Neurological: reports: see HPI, dizziness/vertigo, syncope. denies: slurred speech Psychiatric: reports: no symptoms reported Endocrine: reports: no symptoms reported Hematologic/Lymphatic: reports: no symptoms reported Allergic/Immunologic: reports: no symptoms reported All Other Systems: Reviewed and Negative Past History - Adult - PAST MEDICAL HISTORY-ADULT Review of Records: reports: Nursing Assessment Review, Medications Reviewed, Social history reviewed & non-contributory. Major Childhood Illnesses: reports: history unknown Cardiovascular: reports: CAD, HTN, other (tachycardia) Respiratory: reports: denies history Gastrointestinal: reports: GERD Obstetrical/Gynecological: reports: denies history, other (menopausal for 10 years, still has uterus and ovaries) Genitourinary: reports: denies history Musculoskeletal: reports: denies history, other (neuropathy) Neurological: reports: Seizures/Epilepsy, TIA Psychiatric: reports: denies history, depression Endocrine/Immune: reports: Diabetes Other Conditions: reports: denies history - PRIOR SURGERIES/PROCEDURES Surgical/Procedure History: reports: recent surgery (11/14/17), CABG (recent 11/14/17), tonsillectomy, other (varicose veins) - PRIOR HOSPITALIZATIONS Prior Hospitalizations: reports: none - IMMUNIZATION STATUS Childhood Immunizations: See Nurse Assessment Flu Vaccine: See Nurse Assessment - FAMILY HISTORY Family History: reviewed, not pertinent Physical Exam-General - PHYSICAL EXAM-ADULT Initial Vital Signs Reviewed: Yes - CONSTITUTIONAL General Appearance: appears well, alert, no apparent distress. negative: anxious, combative - EYES Eyes: PERRL/EOMI, pink conjunctivae. negative: photophobia - HEAD, EARS, NOSE, MOUTH & THROAT HENMT: normocephalic/atraumatic, moist mucous membranes. negative: angioedema - RESPIRATORY Respiratory: chest non-tender, lungs clear, normal breath sounds. negative: stridor, wheezing - CARDIOVASCULAR Cardiovascular: normal peripheral pulses, regular rate, rhythm, no edema. negat andriy: bradycardia, tachycardia - MUSCULOSKELETAL Extremity: normal inspection. negative: deformity - SKIN Integumentary: normal color. negative: diaphoresis - PSYCHIATRIC Psych/Mental Status: normal mood/affect, oriented x 3. negative: anxious, disheveled Progress - PLAN OF CARE/RESULTS Progress/Plan/Lab Results: Vital Signs - 8 hr 04/17/19 10:47 04/17/19 11:47 Temperature 97.4 F L Pulse Rate 73 Pulse Rate [Sitting] 70 Pulse Rate [Standing] 69 Pulse Rate [Supine] 70 Respiratory Rate 16 Blood Pressure 106/68 Blood Pressure [Sitting] 147/89 Blood Pressure [Standing] 82/60 Blood Pressure [Supine] 156/128 O2 Sat by Pulse Oximetry 96 Laboratory Results - last 24 hr 04/17/19 04/17/19 04/17/19 11:43 11:43 11:43 WBC 9.98 RBC 4.74 Hgb 14.2 Hct 42.6 MCV 89.9 MCH 30.0 MCHC 33.3 RDW Std Deviation 12.3 Plt Count 269 MPV 10.9 H Immature Gran % (Auto) 0.3 Neut % (Auto) 74.4 Lymph % (Auto) 16.2 L Hale % (Auto) 7.4 Eos % (Auto) 1.5 Baso % (Auto) 0.2 Immature Gran # (Auto) 0.03 Neut # (Auto) 7.42 H Lymph # (Auto) 1.62 Hale # (Auto) 0.74 H Eos # (Auto) 0.15 Baso # (Auto) 0.02 PT INR PTT (Actin FS) Sodium 127 L Potassium 5.5 H Chloride 94 L Carbon Dioxide 22 L Anion Gap 11 BUN 33 H Creatinine 1.5 H Estimated GFR/1.73 m2 35 BUN/Creatinine Ratio 22 Glucose 410 H* POC Glucose Calculated Osmolality 280 Calcium 10.3 H Magnesium 1.9 Total Bilirubin 0.32 AST 25 ALT 34 Alkaline Phosphatase 123 H Creatine Kinase 48 Troponin T Fix-N-Fmohkbpmouo Pept 453 H Total Protein 7.6 Albumin 4.2 Globulin 3.4 Albumin/Globulin Ratio 1.2 04/17/19 04/17/19 04/17/19 11:43 11:43 11:59 WBC RBC Hgb Hct MCV MCH MCHC RDW Std Deviation Plt Count MPV Immature Gran % (Auto) Neut % (Auto) Lymph % (Auto) Hale % (Auto) Eos % (Auto) Baso % (Auto) Immature Gran # (Auto) Neut # (Auto) Lymph # (Auto) Hale # (Auto) Eos # (Auto) Baso # (Auto) PT 13.0 INR 0.97 PTT (Actin FS) 25.4 Sodium Potassium Chloride Carbon Dioxide Anion Gap BUN Creatinine Estimated GFR/1.73 m2 BUN/Creatinine Ratio Glucose POC Glucose 412 H Calculated Osmolality Calcium Magnesium Total Bilirubin AST ALT Alkaline Phosphatase Creatine Kinase Troponin T 0.362 H* Mss-V-Srmnnabhkzf Pept Total Protein Albumin Globulin Albumin/Globulin Ratio Orders Category Date Time Status ED: Orthostatic Vital Signs (E as directed Care 04/17/19 11:25 Active Nursing- Obtain EKG once Care 04/17/19 11:26 Active CHEST-PORTABLE [RAD] Stat Exams 04/17/19 11:26 Completed ABG [RESP] Stat Lab 04/17/19 12:48 Uncollected ACETONE SERUM [CHEM] Stat Lab 04/17/19 12:48 Ordered CBC WITH ELECTRONIC DIFF [HEME] Stat Lab 04/17/19 11:43 Completed CK PROFILE [SP CHEM] Stat Lab 04/17/19 11:43 Completed COMPREHENSIVE METABOLIC PANEL [CHEM] Stat Lab 04/17/19 11:43 Completed MAGNESIUM [CHEM] Stat Lab 04/17/19 11:43 Completed PRO B-NATRIURETIC PEPTIDE Stat Lab 04/17/19 11:43 Completed PROTIME WITH INR [COAG] Stat Lab 04/17/19 11:43 Completed PTT [COAG] Stat Lab 04/17/19 11:43 Completed TROPONIN T Stat Lab 04/17/19 11:43 Completed URINALYSIS W/POSS RFLX CULT [URINALYSIS] Stat Lab 04/17/19 11:47 Ordered 0.9% Sodium Chloride Inj [Ns] 1,000 ml Med 04/17/19 11:26 Discontinued IV 999 mls/hr Aspirin Med 04/17/19 12:51 Discontinued 325 mg PO NOW ONE Insulin Human Regular [Humulin R] Med 04/17/19 12:48 Discontinued 10 unit IV NOW ONE EKG [EKG] Stat Ther 04/17/19 11:26 Draft Result Diagrams: 04/17/19 11:43 04/17/19 11:43 - REASSESSMENT Reassessment #1 Time Reassessed: 12:49 Status: improving (Given IVF bolus, IV insulin. ASA for elevated troponin. OLD RECORDS REVIEWED, patient has always had elevated troponins, and today's is actually the least elevated it has been.) - EKG 1 Time of EKG reading by physician:: 12:13 EKG Read and Signed by:: Jamey Cheema EKG Interpretation (*Must complete 3 of following elements*): Abnormal (inferior infarct) Rate: 69 Rhythm: nsr QRS: poor R wave progression ST Wave: normal - XRAY 1 XRAY: Bilateral XRAY Study: Chest Impression: See EMR Report (IMPRESSION: Negative exam. Electronically signed by Ole Ramirez 04/17/2019 11:50 AM) - CONSULTS/PCP/HOSPITALIST Notification #1 *Consult/PCP/Hospitalist*: paged at [phone] returned; at [phone]/SERGING MACHINE OPERATOR for Eric/Certified Nurse Operating Room Time Discussed: 12:45 Consult Disposition: other (will see pt upstairs after admitted by hospitalist) #2 Consult: YAZMIN Aguilar paged at [phone]; returned at [phone] Lauren/NAIMA fo Hospitalist Time Discussed: 12:52 Consult Disposition: Admit (accepted pt) Departure - Departure Date of Disposition Decision: 04/17/19 Time of Disposition Decision: 12:50 DIAGNOSIS: Orthostatic hypotension dysautonomic syndrome, Uncontrolled type 2 diabetes mellitus with hyperglycemia, with long-term current use of insulin Disposition: HOME 01 Certified Medical Emergency: Emergent Condition: Stable Additional Freetext Instructions: ED Follow Up Instructions: You have been treated by a care provider in the Emergency Department. These instructions are being provided to you so you can have an understanding of how to care for yourself upon discharge. Upon discharge from the Emergency Department, you are responsible for making arrangements for follow-up care by a physician of your choice. Take all prescribed medications as directed. Return to the Emergency Department immediately for any new or worsening symptoms. You may call the Physician Referral phone number at [phone] to obtain a list of Physicians who are taking new patients. - Critical Care Note This patient required my direct & personal management of CC.: Yes Total Time (mins): 35 Critical Care Statement: This patient required my direct personal management to treat or rule out processes, the absence of which, could potentiallly result in sudden, clinically significant life or limb threatening deterioration. Attestation - Physician/ JAZMÍN Attestation Patient care was provided by Advanced Practice Provider:: No The physician spent face to face time with patient:: Yes Advanced Practice Provider documentation review:: Supervising physician onsite and consulted in the evaluation and care of this patient. The physician did have a face to face encounter with the patient. This chart was documented by the indicated scribe, (Hali Holloway Scribe) and accurately reflects the services I performed and decisions made by me, Jamey Cheema MD, as attested by the provider's signature.
[2019-04-17] MEDS ORDERED: TYLENOL PO PRN (13:07)
[2019-04-17] MEDS ORDERED: ZOFRAN IV PRN (13:07)
[2019-04-17] MEDS ORDERED: FLEXERIL PO PRN (13:07)
[2019-04-17] MEDS ORDERED: NS 1,000 ML IV SCH (13:15)
[2019-04-17 13:55] LABS: ALLEN TEST YES; BE -6.7 mmoll (-3.0-3.0); BLOOD TYPE ARTERIAL; HCO3-(ACT) 19.6 mmoll (20.0-26.0); METHB 0.5 % (0.0-1.5); MODALITY CANNULA; O2(CT) 17.3 mL/dL (15.0-23.0); O2HB 93.6 % (95.0-99.0); PCO2(98.6) 35 mmHg (35-45); PO2(98.6) 69 mmHg (60-100); SAMPLE BLOOD; SAO2 95.4 % (95.0-100.0); THB 13.1 g/dL (11.5-17.4); pH(98.6) 7.33 (7.35-7.45)
--- NOTE | 2019-04-17 14:12 | CARDIOLOGY CONSULTATION ---
DATE: 04/17/2019 REASON FOR CONSULTATION: Cardiology was consulted for abnormal troponin and postural hypotension. HISTORY: Ms. Mamie Tadeo is a 62-year-old, lady who has chronically elevated troponins. She has known coronary artery disease, and underwent coronary artery bypass grafting in the past, and had a cardiac catheterization done recently. She comes with complaints of having had two primary care doctors, and was noted to have systolic blood pressure in the 80. She was posturally hypotensive, and was sent to the emergency room. The patient does not complain of any chest pain, and feels comfortable at the time of my examination. She had seen Dr. Stone her primary pump oiler earlier this year. Her states that at home she has been having episodes of falling without having lost consciousness, and on a couple of occasions she has come to the emergency room and was given IV fluids. She feels better, but after she goes home, she again has these episodes of dizziness without any smita syncopal episode. She has had complaints of weakness especially when he tends to help her going to the restroom. There is no history of palpitations. REVIEW OF SYSTEMS: A 14-point review of systems was done. GI: She has episodes of diarrhea at least 5 times a day. This tends to happen once or twice a week. There is no history of hematemesis. There is no blood in her stools. Respiratory: There is no history of fevers, chills, cough or hemoptysis. Genitourinary: There is no dysuria or hematuria. PAST MEDICAL HISTORY: 1. Coronary artery disease, status post coronary artery bypass grafting in 2018 with MACK to left anterior descending artery, SVG to OM, SVG to right coronary artery. Last cardiac catheterization on 09/12/2018 revealed LAD 100% occluded, left circumflex 95% and OM2 bypass. RCA dominant 100% occluded. MACK to LAD patent with good runoff, SVG to OM widely patent with good run off. SVG to RCA was patent, relative small vessel. 2. Medical management recommended. 3. Chronically elevated troponins. 4. History of ND 11/24/2017. 5. Hypertension. 6. Hyperlipidemia. 7. Diabetes. 8. Minimal carotid disease. 9. History of CVA. 10. Seizure disorder. HOME MEDICATIONS: 1. Amlodipine 2.5 mg a day. 2. Metoprolol 50 mg b.i.d. 3. Duloxetine 60 b.i.d. 4. Glipizide 5 mg. 6. Ibuprofen. 7. Insulin glargine. 8. Lyrica. 9. Clonazepam. ALLERGIES: She is allergic to metformin. SOCIAL HISTORY: She does not smoke. Does not drink. PHYSICAL EXAMINATION: Vital Signs: Blood pressure 147/89. On standing, blood pressure dropped to 82/60. Pulse rate had not changed much. She is afebrile. First and second heart sounds were heard. There is no S3-S4 gallop. Respiratory: Normal air entry. There are no crepitations or rhonchi. Abdomen: Soft, nontender. There was no guarding or rigidity. Bowel sounds were heard. Central nervous system: Alert and oriented, was moving all 4 extremities. Extremities: Examination of extremities revealed no pedal edema. HEENT: Atraumatic, normocephalic. Pupils were equal and reacting to light. LABORATORY: Sodium 127, potassium 5.5, BUN 33, and creatinine 1.5. Troponin abnormal at 0.362. WBC 9.9, hemoglobin 14.2, hematocrit. 42.6 and platelet count 269,000. ASSESSMENT AND PLAN: Ms. Mamie Tadeo is a 62-year-old lady with history of coronary artery disease, coronary artery bypass grafting, diabetes, CVA and seizure disorder, has chronically elevated troponins. She underwent cardiac catheterization earlier this year. Her grafts were patent. She comes with complaints of having dizziness and was noted to be orthostatic in primary physician's office, and subsequently admitted. She has significant postural drop. On discussing with her , she has been having these episodes of dizziness when she tries to stand up. Given her hyponatremia, of concern is that we need to: 1. Rule out syndrome of inappropriate ADH secretion. 2. Posture hypertension could be related to medications. We will hold off on the Norvasc and decrease the beta-blockers to 50 mg a day. This has been recently increased to 50 twice a day. 3. She has diabetes. The postural hypotension could be related to diabetic neuropathy as well. She had taken diuretics in the past. However, the patient states that she has not been taking diuretic of late. From a cardiac standpoint, as far as further testing is concerned, she had all the workup done recently. We will not do further workup as far as ischemic workup is concerned. She is on aspirin 81 mg a day. I will not make any changes. 4. We will also check a fasting lipid profile. She is a diabetic with coronary artery disease, and coronary artery bypass grafting. We will put her on Lipitor 40 mg a day. cc: Duran Reyes MD MTDD
--- NOTE | 2019-04-17 15:56 | Diag Imaging Result Doc PS360 ---
EXAM: CT THORAX W/O CONTRAST INDICATION: SIADH; orthostasis TECHNIQUE: This exam was performed using automated exposure control, adjustment of mA or kV according to patient size, and/or use of iterative reconstruction technique. COMPARISON: 09/20/2018 FINDINGS: There is mild stable linear scarring versus chronic atelectasis in the lower lobes bilaterally. There is a small area in the left upper lobe, there is mild tree-in-bud opacity suggesting bronchiolitis. There is adjacent mild focal bronchiectasis. This is stable as compared to the previous study. As stated on the previous study, it could represent an atypical infectious process. No new consolidations are appreciated. There is no pleural fluid collection and no pneumothorax. There are CABG changes. There is no cardiomegaly. There is no evidence of significant mediastinal or hilar lymphadenopathy. Limited views of the upper abdomen are essentially unremarkable. IMPRESSION: 1.Stable very mild tree-in-bud opacities in the left upper lobe suggesting mild chronic bronchiolitis. 2.Minimal subsegmental atelectasis and/or scarring at the lung bases. 3.No definite acute pathology, otherwise. Electronically signed by Gabriel Camarena 04/17/2019 3:54 PM
[2019-04-17] MEDS ORDERED: HUMULIN R SUBQ SCH (16:00)
[2019-04-17] MEDS: NS 1,000 ML IV SCH (16:30)
[2019-04-17] MEDS: MAXIPIME 1 GM in NS 50 ML IV SCH (16:36)
[2019-04-17 16:40] LABS: URINE SOURCE CLEAN CATCH
[2019-04-17 16:46] LABS: BILIRUBIN URINE NEGATIVE (NEGATIVE); BLOOD URINE NEGATIVE (NEGATIVE); COLOR YELLOW; GLUCOSE URINE 1000 mg/dL (NEGATIVE); KETONE URINE NEGATIVE (NEGATIVE); LEUKOCYTES URINE SMALL (NEGATIVE); NITRITE URINE NEGATIVE (NEGATIVE); PROTEIN URINE NEGATIVE (NEGATIVE); SP GRAVITY URINE 1.005; TURBIDITY URINE CLEAR (CLEAR); UR EPITHELIAL CELLS <10 /HPF (<10); URINE BACTERIA 4+ /HPF; URINE RBC <10 /HPF (<10); URINE WBC <10 /HPF (<10); UROBILINOGEN URINE NORMAL (NORMAL)
[2019-04-17] MEDS: HUMULIN R SUBQ SCH ×2 (17:27→21:11)
[2019-04-17 18:11] LABS: UR POTASSIUM 20.7 mmoll
[2019-04-17 18:36] LABS: ALBUMIN 3.6 g/dL (3.5-5.0); CALCIUM 9.9 mg/dL (8.8-10.2); CREATININE 1.5 mg/dL (0.5-0.9); PHOSPHORUS 3.7 mg/dL (2.7-4.5)
[2019-04-17] MEDS: LANTUS INSULIN SUBQ SCH (20:42)
[2019-04-17] MEDS: LYRICA PO SCH (20:43)
[2019-04-17] MEDS: CYMBALTA PO SCH (20:43)
--- NOTE | 2019-04-17 20:53 | HISTORY AND PHYSICAL ---
PRIMARY CARE PROVIDER: YAZMIN Morgan AUTOMOBILE LIGHTS ASSEMBLER: Dave Stone MD CHIEF COMPLAINT: Nearly passing out spells for a week. HISTORY OF PRESENT ILLNESS: Ms Mamie Tadeo is a 63-year-old female with a medical history of coronary artery disease, had a CABG x3, along with myocardial infarction with chronic troponinemia with CABG being November 2017, also with possible history of CVA versus TIA, diabetes is uncontrolled with a hemoglobin A1c of 12, anxiety/depression, who states that she has been having near syncopal spells on and off for at least a year and a half, but worsened over the last week. She was not feeling well, very lightheaded when she would stand, continuing to take her antihypertensives so she presented to her primary care provider. Was found to be dizzy, lightheaded. Her brought her here to the emergency department, where she was also found to be significantly orthostatic hypotensive. She had already had her antihypertensives this morning. Along with that, she has had some on and off chest pains along with shortness of breath. It is worse when she standing. It is no specific time of the day when it is more frequent. On top of that, she had blood glucose levels in the 400s. She states she checks it every morning and it is in the 260s usually. Is on oral diabetic medications along with insulin dependence and so we will admit for further evaluation and treatment. PAST MEDICAL HISTORY: 1. CVA versus TIA back in early 2018. 2. CAD with history of CABG x4 and a myocardial infarction twice. 3. Uncontrolled diabetes mellitus, type 2, that is insulin dependent. 4. Anxiety/depression. 5. Hypertension. 6. Chronic pain in the shoulders, back, and neck. 7. Neuropathy. SURGICAL HISTORY: 1. CABG x3, 2018with Dr. Messer. 2. Inguinal abscess that was resected. 3. Varicose vein surgery. 4. Tonsillectomy. 5. Tattoo of the eyeliner and eyebrows. SOCIAL HISTORY: Denies tobacco, alcohol, or illicit drug use. She is disabled, on Medicare. She used to smoke, but stopped 25 years ago; it was 2 cigarettes a day for 10 years. She is ambulatory without any difficulties. , was at the bedside earlier. FAMILY HISTORY: Both parents of CAD. Mother at the age of 40, father at the age of 83. He also had diabetes. ALLERGIES: Metformin. HOME MEDICATIONS: 1. Flexeril 10 mg p.o. nightly p.r.n. 2. Cymbalta 60 mg p.o. twice daily. 3. Klonopin 1 mg p.o. daily. 4. Lantus 20 units subcutaneous daily. 5. Lopressor 50 mg p.o. twice daily. 6. Lyrica 200 mg p.o. twice daily. 7. Amlodipine 2.5 mg p.o. daily. 8. Prozac 10 mg p.o. daily. 9. Glucotrol 5 mg p.o. twice daily. 10. Ibuprofen 800 mg p.o. t.i.d. p.r.n.. 11. Bydureon subcutaneous once a week, it is a 2 mg dosing. REVIEW OF SYSTEMS: A 14 point review of systems is complete, and all are negative except for those mentioned in above HPI. PHYSICAL EXAMINATION: VITAL SIGNS: Temperature 97.4 degrees, heart rate 73, respiratory rate 16, blood pressure 106/68, O2 saturation 96% on room air. Orthostatics: Her systolic went from 156 in the supine position all way down to 82 in a standing position. Heart rate did not change. GENERAL: Ms. Mamie Tadeo is a 63-year-old female. She is in no acute distress. She is able answer questions appropriately. HEENT: Atraumatic, normocephalic. Pupils equal, round, and reactive to light. Extraocular movements intact. Mucous membranes are dry. NECK: Trachea midline. CARDIOVASCULAR: S1, S2. Regular rate and rhythm. No rubs, gallops, murmurs. No lower extremity edema. +2 dorsalis and radial pulses. Negative JVD or carotid bruits. PULMONARY: Clear to auscultation. Bilateral breath sounds. No accessory muscle use or work of breathing noted. GASTROINTESTINAL: Soft, nontender, nondistended. Positive bowel sounds x4. EXTREMITIES: Moves all extremities equally. Full range of motion. NEUROLOGIC: AAO x3. Follows commands. Sensory is intact. SKIN: Warm, dry, intact. LABORATORY DATA: White blood cells 9000, hemoglobin 14, hematocrit 42, platelet count 269,000. INR 0.97, PTT is 25.4. PH 7.33, pCO2 of 35, PO2 of 69, bicarbonate 19, base excess -6, saturation 93%, lactate 1.5, that was on nasal cannula. Sodium 127, potassium 5.5, BUN 33, creatinine is 1.5, glucose 410, calcium 10. Magnesium 1.9. Bilirubin 0.32, AST 25, ALT 34. CK 48, troponin 0.362. ProBNP 453. Albumin is 4.2. Acetone negative. IMAGING: Chest x-ray: Negative exam. DIAGNOSTIC STUDIES: EKG: Normal sinus rhythm, rate 69, QTc 407. ASSESSMENT AND PLAN: 1. Near syncope. Likely secondary to orthostatic hypotension. Likely induced by medications. Apparently it has been going on and off for the last year and a half, but worsened over the last week, and she has even had a point in time where she has passed out, but it has been a couple months. We will hold her antihypertensives for now. She will get some IV fluid hydration. We will do every 12-hour orthostatic vitals to evaluate continued orthostasis. 2. History of coronary artery disease and myocardial infarction with coronary artery bypass grafting x3 back in 2018. Also states that she has a little shortness of breath with chest pains, but it seems to be associated more around the spells of near syncope so it is likely induced from the hypotension. We are holding her beta anna, and it does not look like she is on aspirin or a statin. 3. Uncontrolled diabetes mellitus, type 2. Hemoglobin A1c is 12 according to her, but we have got one as 10.9 back in October. We will do patterned blood glucoses, sliding scale insulin and diabetic diet or cardiac diet. 4. Acute kidney injury, it looks like on a chronic kidney disease stage 3. Again she is getting some IV fluid hydration. 5. Hyperkalemia. Will improve with the insulin she is receiving. No peaked T- waves on the EKG. 6. Hyponatremia, rule out syndrome of inappropriate antidiuretic hormone secretion. We will get a chest CT, as she states that she just feels like her chest has felt funny ever since she has had surgery, as well as she has had some shortness of breath here and there. 7. Deep venous thrombosis prophylaxis. SCDs. Dictated by YAZMIN Cutler for Iraida Harvey MD cc: YAZMIN Cutler MD I performed a face to face on the patient. I reviewed all labs and imaging on the patient. I agree with the H&P as dictated. MTDD
[2019-04-17] MEDS: LIPITOR PO SCH (21:10)
[2019-04-18] MEDS: HUMULIN R SUBQ SCH ×6 (00:55→22:01)
[2019-04-18] MEDS: MAXIPIME 1 GM in NS 50 ML IV SCH ×2 (03:40→16:15)
[2019-04-18] MEDS: NS 1,000 ML IV SCH ×5 (03:40→22:17)
[2019-04-18 06:14] LABS: BASO# 0.02 X1000 (0.0-0.2); BASO% 0.2 % (0.0-0.8); EOS# 0.22 X1000 (0.0-0.7); EOS% 2.7 % (0.0-10.0); HEMATOCRIT 37.4 % (37.0-47.0); HEMOGLOBIN 12.2 g/dL (12.0-16.0); LYMPH# 2.45 X1000 (1.2-3.4); LYMPH% 30.4 % (20.5-51.1); MCH 29.8 PG (27-31); MCHC 32.6 g/dL (33-37); MCV 91.4 FL (81-99); MONO# 0.75 X1000 (0.11-0.59); MONO% 9.3 % (1.7-9.3); MPV 10.8 FL (7.4-10.4); NEUT# 4.63 X1000 (1.4-6.5); NEUT% 57.4 % (42.2-75.2); PLT 224 X1000 (130-400); RBC 4.09 XMIL (4.2-5.4); RDW 12.2 % (11.5-14.5); WBC 8.07 X1000 (4.8-10.8)
[2019-04-18 06:18] LABS: INR 1.07
[2019-04-18 06:19] LABS: PTT 25.3 Seconds (22.3-41.8)
[2019-04-18 06:38] LABS: CREATININE 1.2 mg/dL (0.5-0.9); POTASSIUM 4.9 mmol/L (3.5-5.1)
[2019-04-18 06:57] LABS: CHOLESTEROL 202 mg/dL (0-200); HDL 32 mg/dL (45-65); LDL 119 mg/dL; TRIGLYCERIDES 257 mg/dL (35-135); VLDL 51 mg/dL
[2019-04-18 07:27] LABS: CALCIUM 9.2 mg/dL (8.8-10.2); MAGNESIUM 1.9 mg/dL (1.5-2.7); TOTAL BILIRUBIN 0.26 mg/dL (0.20-1.00); TOTAL PROTEIN 6.1 g/dL (6.3-8.3)
--- NOTE | 2019-04-18 08:34 | EKG Report ---
Test Performed on : 04/18/2019 07:21:51 AM Test Reason : chest pain Blood Pressure : / mmHG Vent. Rate : 085 BPM Atrial Rate : 085 BPM P-R Int : 188 ms QRS Dur : 092 ms QT Int : 362 ms P-R-T Axes : 063 017 086 degrees QTc Int : 430 ms Normal sinus rhythm. Possible Inferior infarct (cited on or before 21-SEP-2018) Abnormal ECG When compared with ECG of 17-APR-2019 11:52, (Unconfirmed) No significant change was found Confirmed by Yg DAVIS, Reginald Puri ([id number]) on 04/19/2019 7:42:20 AM
[2019-04-18] MEDS ORDERED: LANTUS INSULIN SUBQ SCH (09:00)
[2019-04-18] MEDS: CYMBALTA PO SCH ×2 (09:43→22:04)
[2019-04-18] MEDS: LANTUS INSULIN SUBQ SCH ×2 (09:44→22:02)
[2019-04-18] MEDS: PROZAC PO SCH (09:45)
[2019-04-18] MEDS: LYRICA PO SCH ×2 (10:22→22:03)
[2019-04-18] MEDS: KLONOPIN PO SCH (10:22)
[2019-04-18] MEDS: PROAMATINE PO SCH ×2 (13:24→16:15)
--- NOTE | 2019-04-18 18:36 | PROGRESS NOTE ---
DATE: 04/18/2019 INTERVAL HISTORY: The patient is fairly comfortable at rest, but still with significant orthostasis and dizziness on standing. She does report some modest improvement with IV fluids. No other acute events. No new complaints. REVIEW OF SYSTEMS: Twelve-point review of systems negative except as per interval history. LABORATORY DATA: CBC unremarkable. INR within normal limits. Sodium 139, potassium 4.9, bicarbonate 17, BUN 31, creatinine 1.2, glucose 163 to 209. Troponin 0.271. DIAGNOSTIC DATA: CT chest with stable tree-in-bud opacities, left upper lobe. They favor mild chronic bronchiolitis. Also some mild atelectasis but no acute pathology. OBJECTIVE: T-max 98.2 degrees, pulse 90, respirations 18, blood pressure 169/94, O2 saturation 93% on room air. Generally in no acute distress. HEENT: Normocephalic, atraumatic. Moist mucous membranes. No cervical adenopathy. Cardiovascular: Regular rate and rhythm. No murmurs noted. Pulmonary: Clear to auscultation bilaterally. No wheezing, rales or rhonchi. Abdomen is soft, nontender, nondistended. Bowel sounds positive. Extremities: Peripheral pulses intact. No clubbing, cyanosis or edema. Neurologic: Cranial nerves grossly intact. No focal deficits identified. Psychiatric: Normal mood and affect. Awake, alert and oriented x3. Skin: No new rashes or lesions identified. ASSESSMENT AND PLAN: 1. Orthostatic hypotension and near-syncope. The patient with something suggesting dehydration. Kidney function appears to be improving with fluids. Modest improvement in some further things with fluids, but still profoundly orthostatic this morning. The patient's blood pressure went from 135/78 lying down to 101/70 sitting up, to 72/51 on standing, suggesting significant orthostasis still. As there appears to be some modest improvement with intravenous fluids, we will increase the fluids and give it another day. If it fails to improve with that, then may be neurogenic, possibly related to diabetic neuropathy and will be quite difficult to treat. We will see how it does. 2. Elevated troponin and coronary artery disease. Patient with coronary artery bypass graft back in 2018. Admission troponin 0.36. Has trended down to 0.27 today. Cardiology following. Suspect demand ischemia/type 2 myocardial infarction, but we will see what Cardiology says. 3. Diabetes mellitus. A1c 10.9 on last check here. Glucose markedly elevated on admission. Significantly improved with starting back some insulin. Control not perfect but acceptable for now. Marked hyperglycemia may have been contributing to dehydration. 4. Hyponatremia. When corrected for her elevated glucose, hyponatremia was minimal on admission and completely resolved with fluids overnight. No evidence of syndrome of inappropriate antidiuretic hormone secretion at this point. Unlikely to have been contributing to her symptoms. 5. Likely acute kidney injury on chronic kidney disease stage 3. Admission creatinine 1.5, improved to 1.2 with fluids. Exact baseline not entirely certain, but was down as low as 1.0 a few months ago. Continue hydration and monitor. 6. Hypokalemia, resolved with fluids and insulin.
[2019-04-18] MEDS: LIPITOR PO SCH (22:03)
[2019-04-19] MEDS: HUMULIN R SUBQ SCH ×5 (01:14→14:04)
[2019-04-19] MEDS: MAXIPIME 1 GM in NS 50 ML IV SCH (05:43)
[2019-04-19] MEDS: NS 1,000 ML IV SCH ×2 (05:45→14:05)
[2019-04-19 07:22] LABS: BASO# 0.02 X1000 (0.0-0.2); BASO% 0.3 % (0.0-0.8); EOS# 0.17 X1000 (0.0-0.7); EOS% 2.9 % (0.0-10.0); HEMATOCRIT 37.4 % (37.0-47.0); HEMOGLOBIN 12.4 g/dL (12.0-16.0); LYMPH# 2.05 X1000 (1.2-3.4); LYMPH% 34.9 % (20.5-51.1); MCHC 33.2 g/dL (33-37); MCV 90.3 FL (81-99); MONO# 0.58 X1000 (0.11-0.59); MONO% 9.9 % (1.7-9.3); MPV 10.6 FL (7.4-10.4); NEUT# 3.05 X1000 (1.4-6.5); PLT 221 X1000 (130-400); RBC 4.14 XMIL (4.2-5.4); WBC 5.87 X1000 (4.8-10.8)
[2019-04-19 07:40] LABS: ALB/GLOB RATIO 1.1; ALBUMIN 3.3 g/dL (3.5-5.0); CALCIUM 9.5 mg/dL (8.8-10.2); MAGNESIUM 1.8 mg/dL (1.5-2.7); POTASSIUM 4.4 mmol/L (3.5-5.1); TOTAL BILIRUBIN 0.21 mg/dL (0.20-1.00); TOTAL PROTEIN 6.2 g/dL (6.3-8.3)
[2019-04-19] MEDS: KLONOPIN PO SCH (08:48)
[2019-04-19] MEDS: LANTUS INSULIN SUBQ SCH (08:49)
[2019-04-19] MEDS: PROAMATINE PO SCH ×2 (08:49→14:04)
[2019-04-19] MEDS: LYRICA PO SCH (08:49)
[2019-04-19] MEDS: CYMBALTA PO SCH (08:49)
[2019-04-19] MEDS: PROZAC PO SCH (09:11)
[2019-04-19 12:29] VITALS: BP 183/91
--- NOTE | 2019-04-21 15:46 | DISCHARGE SUMMARY ---
ADMISSION DATE: 04/17/2019 DISCHARGE DATE: 04/19/2019 CONSULTS: Cardiology. PERTINENT STUDIES: Initial creatinine 1.5, discharge creatinine 1.0. Initial sodium 133, discharge sodium 140, initial troponin 3.62, last troponin 0.27. Urinalysis unremarkable. Acetone negative. Initial glucose 410. Chest x-ray unremarkable. Chest CT with chronic tree-in- bud opacities suggesting mild chronic bronchiolitis, but no acute process. DISCHARGE DIAGNOSES: 1. Orthostatic hypotension. 2. Near syncope. 3. Dehydration. 4. Demand ischemia/type 2 myocardial infarction. 5. Coronary artery disease. 6. Diabetes mellitus, uncontrolled. 7. Hyponatremia. 8. Acute kidney injury on chronic kidney disease 3. 9. Hypokalemia. 10. Hypertension. HOSPITAL COURSE: The patient presented initially complaining of episodes of dizziness and almost passing out which had been going on for quite some time, but worse over the last week. Most of these episodes occurred on standing. She denied fever, chills, nausea, vomiting, palpitations, chest pain, dyspnea. She did endorse intermittent poor fluid intake. Initial evaluation showed marked hyperglycemia, elevated creatinine, elevated troponin. There were no concerning EKG changes, but Cardiology was involved. Troponin trended down from 0.36 to 0.27. Cardiology favored demand ischemia as the cause. They did not feel that acute intervention was necessary on that front. Dehydration related to poor oral fluid intake and marked hyperglycemia was initially favored. The patient was given aggressive IV fluids, which did resolve her low sodium kidney injury. Her troponin trended down as well. However, the patient remained significantly orthostatic. Fluids were increased with resolution of all her other issues, but again her she remained orthostatics. On her last check her supine blood pressure was 165/82, sitting 130/76 and standing 106/83. Her heart rate never showed significant orthostatic change. Despite elevated resting blood pressures because of on patient's ongoing symptoms, she was started on midodrine by Cardiology. This did seem to resolve her symptoms. As patient's other acute issues resolved, midodrine resolved her dizziness after discussion with patient, it was decided to discharge her home despite still having some asymptomatic orthostasis. It was discussed that it was likely worthwhile to follow up with Neurology as her residual orthostasis appeared to be unlikely to be .related to a volume issue. The patient was initially started on her home insulin regimen which improved her glucose control somewhat, but she continued to be in the high 200s and low 300s. So, her Lantus was increased to 30 units a day and she subsequently had overall reasonable control. Her glipizide and Bydureon were held during the hospitalization. Those were restarted at discharge, but patient was cautioned to discuss her Bydureon with her PCP as her kidney function is borderline for continuing to take that. DISCHARGE EXAMINATION: Temperature 99 degrees, pulse 92, respirations 14, blood pressure 165/82. O2 saturation 93% on room air. DISCHARGE DIET: Regular. DISCHARGE MEDICATIONS: Flexeril 10 mg p.o. at bedtime as needed, Bydureon, q. week, Cymbalta 60 mg p.o. b.i.d., Klonopin 1 mg p.o. daily as needed, Lopressor 50 mg p.o. b.i.d., Lyrica 200 mg p.o. b.i.d., Prozac 10 mg p.o. daily, atorvastatin 40 mg p.o. at bedtime, glipizide 5 mg p.o. b.i.d., Lantus 30 units subcutaneous daily, midodrine 5 mg p.o. t.i.d. FOLLOWUP AND PLAN: Patient discharging home on midodrine. Discussed that holding most of her blood pressure medicine and taking midodrine may increase her risk of heart attack and stroke over time secondary to sustained hypertension, but nothing else seemed to keep her from having profound orthostasis and near-syncope on standing. The patient expressed understanding and was on board with this plan. The patient to follow up with PCP, Cardiology and Neurology. Greater than 30 minutes spent arranging discharge and counseling patient.
== END 2019-04-19 17:00 | disposition home or self-care (01) | DRG 281 ==
LOC: ED 10:36 → SUATTDRO 13:33 → 2N 13:33 → 3N 04-18 14:20
PROVIDERS: ATTEND Internal Medicine